=== PATIENT | male | born 1945 | race Caucasian/White ===

== ENCOUNTER → 2017-12-20 | Outpatient (CLI) | payer MEDICARE, BC | END | disposition home or self-care (01) | LOC: LABWHC1 11:17 | PROVIDERS: ATTEND Internal Medicine Geriatric Medicine | DX: E87.5 Hyperkalemia (principal) | CPT/HCPCS: 36415; 84132 ==

== ENCOUNTER 2018-03-31 13:34 | Emergency (ER) | payer MEDICARE, BC ==
[2018-03-31 13:49] VITALS: RESP 16
[2018-03-31] MEDS ORDERED: SODIUM CHLORIDE 0.9% 500 ML IV STA (13:51)
--- NOTE | 2018-03-31 14:01 | ED ---
General Adult HPI - General Chief complaint: Syncope Stated complaint: near syncope Time Seen by Provider: 03/31/18 13:40 Source: patient, RN notes reviewed, old records reviewed Mode of arrival: wheelchair Limitations: no limitations - History of Present Illness Initial comments: 72-year-old male presenting with an episode of near syncope and confusion. Patient is accompanied by his who contribute to history. Patient has had some left hip pain, he has been seen by his chiropractor today. His symptoms began after an adjustment. He did have fairly significant pain in the left hip after this adjustment. He came very lightheaded, pale, confused and nearly passed out. Patient and his state that the symptoms were likely related to pain. He has persistent pain at the time my evaluation although it is more improved. He is alert and oriented 3. He has no complaint of focal numbness or weakness. No chest pain or shortness of breath. No abdominal pain. No nausea vomiting or diarrhea. No fever or chills. - Related Data Home Medications Medication Instructions Recorded Confirmed Aspirin EC [Ecotrin Low Dose] 162 mg PO DAILY 03/31/18 03/31/18 Budesonide-Formot 160-4.5 Mcg 2 puff INHALATION RT-BID 03/31/18 03/31/18 [Symbicort 160-4.5 Mcg Inhaler] Doxazosin [Cardura] 4 mg PO DAILY 03/31/18 03/31/18 Lisinopril [Zestril] 10 mg PO DAILY 03/31/18 03/31/18 Omeprazole 20 mg PO BID 03/31/18 03/31/18 Pyridostigmine [Mestinon] 60 mg PO TID 03/31/18 03/31/18 Sertraline [Zoloft] 50 mg PO DAILY 03/31/18 03/31/18 Simvastatin 40 mg PO HS 03/31/18 03/31/18 Ubidecarenone [Co Q-10] 100 mg PO DAILY 03/31/18 03/31/18 Verapamil HCl [Verapamil ER] 180 mg PO DAILY 03/31/18 03/31/18 Previous Rx's Medication Instructions Recorded HYDROcodone/APAP 5-325MG [[place] 1 tab PO Q6HR PRN #12 tab 03/31/18 5-325] Allergies Allergy/AdvReac Type Severity Reaction Status Date / Time morphine Allergy Nausea & Verified 03/31/18 14:26 Vomiting Review of Systems ROS Statement: Those systems with pertinent positive or pertinent negative responses have been documented in the HPI. ROS Other: All systems not noted in ROS Statement are negative. Past Medical History Past Medical History: Asthma, COPD, GERD/Reflux, Hyperlipidemia, Hypertension, Prostate Disorder Additional Past Medical History / Comment(s): ocular myesthenia gravis History of Any Multi-Drug Resistant Organisms: None Reported Past Surgical History: Back Surgery Additional Past Surgical History / Comment(s): bilateral knee surgery, right foot surgery Past Psychological History: Anxiety Smoking Status: Never smoker Past Alcohol Use History: None Reported Past Drug Use History: None Reported General Exam Limitations: no limitations General appearance: alert, in no apparent distress Head exam: Present: atraumatic, normocephalic Eye exam: Present: normal appearance, PERRL, EOMI ENT exam: Present: normal exam Neck exam: Present: normal inspection. Absent: tenderness, meningismus Respiratory exam: Present: normal lung sounds bilaterally. Absent: respiratory distress, wheezes Cardiovascular Exam: Present: regular rate, normal rhythm GI/Abdominal exam: Present: soft. Absent: distended, tenderness, guarding Extremities exam: Present: normal inspection, normal capillary refill, other ( Distal pulses intact, bilateral quadricep fasciculation.). Absent: pedal edema Neurological exam: Present: alert. Absent: motor sensory deficit Psychiatric exam: Present: normal affect, normal mood Skin exam: Present: warm, diaphoretic. Absent: cyanosis Course Vital Signs 03/31/18 03/31/18 03/31/18 13:42 15:37 17:00 Temperature 98.7 F Pulse Rate 68 86 89 Respiratory 16 16 16 Rate Blood Pressure 125/66 138/69 152/73 O2 Sat by Pulse 98 99 Oximetry - Reevaluation(s) Reevaluation #1: 03/31/18 17:18 Reevaluation, patient is feeling much better, no lightheadedness, no dizziness, he does have persistent pain in the left hip which is tolerable. Vitals remained stable. EKG Findings - EKG Comments: EKG Findings:: EKG: Normal sinus rhythm, rate of 72, WA interval 188, QRS duration 84, QTC 418, no ST segment changes Medical Decision Making - Medical Decision Making 72-year-old male presenting with near syncopal episode and some confusion. This was after painful manipulation of the left hip and associated with fairly severe pain. Patient's symptoms likely related to vasovagal episode secondary to pain in his left hip. He did appear unwell on initial evaluation, pale and diaphoretic. After workup in the emergency department which was essentially negative. Brain CT is negative for it[place] hemorrhage or mass effect, chest x-ray negative for acute cardiopulmonary disease, CT of the abdomen and pelvis is negative for any acute findings. There is some thickness in the sigmoid colon which patient is informed of and instructed to follow up with gastroenterology for colonoscopy. Patient has a white blood cell count of 15 which is likely reactive, hemoglobin is stable, creatinine 1.3 troponin negative , urinalysis negative. Patient's is eager for discharge, will follow-up with his primary care physician. He will return with worsening or changing symptoms. He will be prescribed a short course of [place] for his hip pain and will discontinue taking naproxen as his creatinine is mildly elevated. - Lab Data Result diagrams: 03/31/18 14:20 03/31/18 14:20 Lab Results 03/31/18 03/31/18 03/31/18 Range/Units 13:42 14:12 14:20 WBC (3.8-10.6) k/uL RBC (4.30-5.90) m/uL Hgb (13.0-17.5) gm/dL Hct (39.0-53.0) % MCV (80.0-100.0) fL MCH (25.0-35.0) pg MCHC (31.0-37.0) g/dL RDW (11.5-15.5) % Plt Count (150-450) k/uL Neutrophils % % Lymphocytes % % Monocytes % % Eosinophils % % Basophils % % Neutrophils # (1.3-7.7) k/uL Lymphocytes # (1.0-4.8) k/uL Monocytes # (0-1.0) k/uL Eosinophils # (0-0.7) k/uL Basophils # (0-0.2) k/uL PT (9.0-12.0) sec INR (<1.2) APTT (22.0-30.0) sec Sodium (137-145) mmol/L Potassium (3.5-5.1) mmol/L Chloride (98-107) mmol/L Carbon Dioxide (22-30) mmol/L Anion Gap mmol/L BUN (9-20) mg/dL Creatinine (0.66-1.25) mg/dL Est GFR (CKD-EPI)AfAm (>60 ml/min/1.73 sqM) Est GFR (CKD-EPI)NonAf (>60 ml/min/1.73 sqM) Glucose (74-99) mg/dL POC Glucose (mg/dL) 110 H 103 H (75-99) mg/dL POC Glu [employer] ID Dafne Beasley Jason Plasma Lactic Acid Isaac 1.6 (0.7-2.0) mmol/L Calcium (8.4-10.2) mg/dL Magnesium (1.6-2.3) mg/dL Total Bilirubin (0.2-1.3) mg/dL AST (17-59) U/L ALT (21-72) U/L Alkaline Phosphatase (38-126) U/L Total Creatine Kinase (55-170) U/L CK-MB (CK-2) (0.0-2.4) ng/mL CK-MB (CK-2) Rel Index Troponin I (0.000-0.034) ng/mL Total Protein (6.3-8.2) g/dL Albumin (3.5-5.0) g/dL Urine Color Urine Appearance (Clear) Urine pH (5.0-8.0) Ur Specific [place] (1.001-1.035) Urine Protein (Negative) Urine Glucose (UA) (Negative) Urine Ketones (Negative) Urine Blood (Negative) Urine Nitrite (Negative) Urine Bilirubin (Negative) Urine Urobilinogen (<2.0) mg/dL Ur Leukocyte Esterase (Negative) Urine RBC (0-5) /hpf Urine WBC (0-5) /hpf Hyaline Casts (0-2) /lpf Urine Mucus (None) /hpf 03/31/18 03/31/18 03/31/18 Range/Units 14:20 14:20 14:20 WBC 15.0 H (3.8-10.6) k/uL RBC 4.70 (4.30-5.90) m/uL Hgb 13.4 (13.0-17.5) gm/dL Hct 42.2 (39.0-53.0) % MCV 89.8 (80.0-100.0) fL MCH 28.6 (25.0-35.0) pg MCHC 31.8 (31.0-37.0) g/dL RDW 14.6 (11.5-15.5) % Plt Count 254 (150-450) k/uL Neutrophils % 82 % Lymphocytes % 8 % Monocytes % 9 % Eosinophils % 0 % Basophils % 0 % Neutrophils # 12.2 H (1.3-7.7) k/uL Lymphocytes # 1.2 (1.0-4.8) k/uL Monocytes # 1.3 H (0-1.0) k/uL Eosinophils # 0.0 (0-0.7) k/uL Basophils # 0.0 (0-0.2) k/uL PT (9.0-12.0) sec INR (<1.2) APTT (22.0-30.0) sec Sodium 142 (137-145) mmol/L Potassium 4.9 (3.5-5.1) mmol/L Chloride 111 H (98-107) mmol/L Carbon Dioxide 23 (22-30) mmol/L Anion Gap 8 mmol/L BUN 25 H (9-20) mg/dL Creatinine 1.30 H (0.66-1.25) mg/dL Est GFR (CKD-EPI)AfAm 63 (>60 ml/min/1.73 sqM) Est GFR (CKD-EPI)NonAf 54 (>60 ml/min/1.73 sqM) Glucose 99 (74-99) mg/dL POC Glucose (mg/dL) (75-99) mg/dL POC Glu [employer] ID Plasma Lactic Acid Isaac (0.7-2.0) mmol/L Calcium 9.5 (8.4-10.2) mg/dL Magnesium 2.2 (1.6-2.3) mg/dL Total Bilirubin 0.8 (0.2-1.3) mg/dL AST 20 (17-59) U/L ALT 27 (21-72) U/L Alkaline Phosphatase 59 (38-126) U/L Total Creatine Kinase 56 (55-170) U/L CK-MB (CK-2) 0.9 (0.0-2.4) ng/mL CK-MB (CK-2) Rel Index 1.6 Troponin I <0.012 (0.000-0.034) ng/mL Total Protein 7.5 (6.3-8.2) g/dL Albumin 4.1 (3.5-5.0) g/dL Urine Color Urine Appearance (Clear) Urine pH (5.0-8.0) Ur Specific [place] (1.001-1.035) Urine Protein (Negative) Urine Glucose (UA) (Negative) Urine Ketones (Negative) Urine Blood (Negative) Urine Nitrite (Negative) Urine Bilirubin (Negative) Urine Urobilinogen (<2.0) mg/dL Ur Leukocyte Esterase (Negative) Urine RBC (0-5) /hpf Urine WBC (0-5) /hpf Hyaline Casts (0-2) /lpf Urine Mucus (None) /hpf 03/31/18 03/31/18 Range/Units 14:20 15:12 WBC (3.8-10.6) k/uL RBC (4.30-5.90) m/uL Hgb (13.0-17.5) gm/dL Hct (39.0-53.0) % MCV (80.0-100.0) fL MCH (25.0-35.0) pg MCHC (31.0-37.0) g/dL RDW (11.5-15.5) % Plt Count (150-450) k/uL Neutrophils % % Lymphocytes % % Monocytes % % Eosinophils % % Basophils % % Neutrophils # (1.3-7.7) k/uL Lymphocytes # (1.0-4.8) k/uL Monocytes # (0-1.0) k/uL Eosinophils # (0-0.7) k/uL Basophils # (0-0.2) k/uL PT 10.0 (9.0-12.0) sec INR 1.0 (<1.2) APTT 22.8 (22.0-30.0) sec Sodium (137-145) mmol/L Potassium (3.5-5.1) mmol/L Chloride (98-107) mmol/L Carbon Dioxide (22-30) mmol/L Anion Gap mmol/L BUN (9-20) mg/dL Creatinine (0.66-1.25) mg/dL Est GFR (CKD-EPI)AfAm (>60 ml/min/1.73 sqM) Est GFR (CKD-EPI)NonAf (>60 ml/min/1.73 sqM) Glucose (74-99) mg/dL POC Glucose (mg/dL) (75-99) mg/dL POC Glu [employer] ID Plasma Lactic Acid Isaac (0.7-2.0) mmol/L Calcium (8.4-10.2) mg/dL Magnesium (1.6-2.3) mg/dL Total Bilirubin (0.2-1.3) mg/dL AST (17-59) U/L ALT (21-72) U/L Alkaline Phosphatase (38-126) U/L Total Creatine Kinase (55-170) U/L CK-MB (CK-2) (0.0-2.4) ng/mL CK-MB (CK-2) Rel Index Troponin I (0.000-0.034) ng/mL Total Protein (6.3-8.2) g/dL Albumin (3.5-5.0) g/dL Urine Color Yellow Urine Appearance Clear (Clear) Urine pH 7.0 (5.0-8.0) Ur Specific [place] 1.024 (1.001-1.035) Urine Protein 1+ H (Negative) Urine Glucose (UA) Negative (Negative) Urine Ketones Negative (Negative) Urine Blood Negative (Negative) Urine Nitrite Negative (Negative) Urine Bilirubin Negative (Negative) Urine Urobilinogen 4.0 (<2.0) mg/dL Ur Leukocyte Esterase Negative (Negative) Urine RBC <1 (0-5) /hpf Urine WBC 1 (0-5) /hpf Hyaline Casts 3 H (0-2) /lpf Urine Mucus Occasional H (None) /hpf Disposition Clinical Impression: Vasovagal syncope Disposition: HOME SELF-CARE Condition: Fair Instructions: Near Syncope (ED) Prescriptions: HYDROcodone/APAP 5-325MG [[place] 5-325] 1 tab PO Q6HR PRN #12 tab PRN Reason: Pain Is patient prescribed a controlled substance at d/c from ED?: Yes When asked, does pt state using other controlled substances?: No If prescribed controlled substance>3 days was MAPS reviewed?: Prescribed <3 Days If opioid is for acute pain is fill amount 7 days or less?: Yes If Rx opioid, was Start Talking consent form obtained?: Yes Referrals: Torrey Garcia MD [Primary Care Provider] - 1-2 days Time of Disposition: 17:20
[2018-03-31 14:02] LABS: Glucose,Whole Blood 110 mg/dL (75-99)
[2018-03-31 14:17] LABS: Glucose,Whole Blood 103 mg/dL (75-99)
[2018-03-31 14:38] LABS: Basophils % (A) 0 %; Eosinophils % (A) 0 %; HCT 42.2 % (39.0-53.0); HGB 13.4 gm/dL (13.0-17.5); Lymphocytes # (A) 1.2 k/uL (1.0-4.8); Lymphocytes % (A) 8 %; MCH 28.6 pg (25.0-35.0); MCHC 31.8 g/dL (31.0-37.0); MCV 89.8 fL (80.0-100.0); Monocytes # (A) 1.3 k/uL (0-1.0); Monocytes % (A) 9 %; Neutrophils # (A) 12.2 k/uL (1.3-7.7); Neutrophils % (A) 82 %; Platelet Count 254 k/uL (150-450); RDW 14.6 % (11.5-15.5)
[2018-03-31 14:41] LABS: Partial Thromboplastin Time 22.8 sec (22.0-30.0)
[2018-03-31 14:47] LABS: Albumin 4.1 g/dL (3.5-5.0); Calcium 9.5 mg/dL (8.4-10.2); Magnesium 2.2 mg/dL (1.6-2.3); Potassium 4.9 mmol/L (3.5-5.1); Total Bilirubin 0.8 mg/dL (0.2-1.3); Total Protein 7.5 g/dL (6.3-8.2)
[2018-03-31 14:53] LABS: Creatine Kinase 56 U/L (55-170)
--- NOTE | 2018-03-31 14:55 | XR ---
EXAMINATION TYPE: XR chest 2V DATE OF EXAM: 03/31/2018 COMPARISON: 08/30/2017 HISTORY: 72-year-old male syncope TECHNIQUE: AP and lateral views FINDINGS: Heart upper limits of normal in size. Aorta and pulmonary vasculature within normal limits. No consol idation or pleural effusion. IMPRESSION: No acute cardiopulmonary process.
[2018-03-31 15:06] LABS: Creatine Kinase MB 0.9 ng/mL (0.0-2.4); Troponin I <0.012 ng/mL (0.000-0.034)
[2018-03-31 15:44] LABS: Appearance,Urine Clear (Clear); Bilirubin,Urine Negative (Negative); Blood,Urine Negative (Negative); Color,Urine Yellow; Glucose,Urine (UA) Negative (Negative); Hyaline Casts,Urine 3 /lpf (0-2); Ketones,Urine Negative (Negative); Leukocyte Esterase,Urine Negative (Negative); Mucus,Urine Occasional /hpf; Nitrite,Urine Negative (Negative); Protein,Urine 1+ (Negative); RBC,Urine <1 /hpf (0-5); Specific Gravity,Urine 1.024 (1.001-1.035); WBC,Urine 1 /hpf (0-5)
--- NOTE | 2018-03-31 16:09 | CT ---
EXAMINATION TYPE: CT brain wo con DATE OF EXAM: 03/31/2018 COMPARISON: MR brain 01/04/2015 HISTORY: Syncopal episode today. CT DLP: 1076.1 mGycm Automated exposure control for dose reduction was used. Helical acquisition through the brain. 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 Calvarium is intact. Auditory change present in the bilateral maxillary sinuses. Asymmetry in the frontal horns of the lateral ventricles is a stable fin ding. No hemorrhage or hydrocephalus. IMPRESSION: NO ACUTE ABNORMALITY. ADDITIONAL FINDINGS ABOVE.
--- NOTE | 2018-03-31 17:08 | CT ---
EXAMINATION TYPE: CT abdomen pelvis w con DATE OF EXAM: 03/31/2018 COMPARISON: None HISTORY: c/o dizziness, weakness CT DLP: 1211 mGycm Automated exposure control for dose reduction was used. TECHNIQUE: Helical acquisition of images was performed from the lung bases through the pelvis. CONTRAST: Performed without Oral Contrast and with IV Contrast, patient injected with 80 mL of Isovue 300. FINDINGS: LUNG BASES: No significant abnormality is appreciated. LIVER/GB: No significant abnormality is appreciated. PANCREAS: No significant abnormality is seen. SPLEEN: No significant abnormality is seen. ADRENALS: No significant abnormality is seen. KIDNEYS: No significant abnormality is seen. FREE AIR: No free air is visualized. RETROPERITONEAL ADENOPATHY: None visualized REPRODUCTIVE ORGANS: No significant abnormality is seen URINARY BLADDER: No significant abnormality is seen. PELVIC ADENOPATHY: None visualized. OSSEOUS STRUCTURES: No significant abnormality is seen. BOWEL: There is no bowel obstruction. There is prominent sigmoid diverticulosis, without tai CT ev idence of diverticulitis. There is prominence to the wall of the sigmoid colon. If colonoscopy not r ecently obtained, which suggest characterization. OTHER: The vasculature is unremarkable for acute findings. IMPRESSION: 1. NO ACUTE PROCESS. 2. Nonurgent/nonspecific sigmoid colon findings; please refer to discussion above.
[2018-03-31 17:48] VITALS: BP 151/117; PULSE 78; TEMP 97.8
== END 2018-03-31 18:15 | disposition home or self-care (01) ==
LOC: EC 13:34
DX: R55 Syncope and collapse (principal); R41.0 Disorientation, unspecified; M25.552 Pain in left hip; R42 Dizziness and giddiness; J44.9 Chronic obstructive pulmonary disease, unspecified; E78.5 Hyperlipidemia, unspecified; I10 Essential (primary) hypertension; N42.9 Disorder of prostate, unspecified; F41.9 Anxiety disorder, unspecified; Z79.82 Long term (current) use of aspirin; Z79.51 Long term (current) use of inhaled steroids; Z79.899 Other long term (current) drug therapy; Z88.5 Allergy status to narcotic agent
CPT/HCPCS: 36415; 93005; 80053; 82550; 82553; 83605; 83735; 84484; 85025; 85610; 85730; 81001; 87040; 87077; 87186; 71046; 70450; 74177; 99285; 96360; Q9967

== ENCOUNTER 2018-04-01 15:06 | Inpatient (IN) | payer MEDICARE, BC ==
[2018-04-01] MEDS ORDERED: SODIUM CHLORIDE 0.9% 1,000 ML IV STA ×2 (15:27)
[2018-04-01] MEDS ORDERED: cefTRIAXone IN SWFI 1,000 MG/10 ML SYRINGE IVP STA (15:27)
[2018-04-01] MEDS ORDERED: cefTRIAXone IN SWFI 2,000 MG/20 ML SYRINGE IVP STA (15:33)
[2018-04-01] MEDS ORDERED: PIPERACILLIN-TAZOBACTAM 3.375 GM in DEXTROSE/WATER 1 50ML.BAG IVPB STA (15:44)
[2018-04-01] MEDS ORDERED: LEVOFLOXACIN 500MG-D5W PMX 500 MG in DEXTROSE/WATER 1 100ML.BAG IVPB STA (15:45)
[2018-04-01 15:54] LABS: Basophils % (A) 0 %; Eosinophils % (A) 0 %; HCT 36.3 % (39.0-53.0); HGB 11.7 gm/dL (13.0-17.5); Lymphocytes # (A) 0.7 k/uL (1.0-4.8); Lymphocytes % (A) 5 %; MCH 28.5 pg (25.0-35.0); MCHC 32.2 g/dL (31.0-37.0); MCV 88.7 fL (80.0-100.0); Monocytes # (A) 0.9 k/uL (0-1.0); Monocytes % (A) 6 %; Neutrophils % (A) 88 %; Platelet Count 228 k/uL (150-450); RBC 4.09 m/uL (4.30-5.90); RDW 14.7 % (11.5-15.5); WBC 14.8 k/uL (3.8-10.6)
[2018-04-01 16:00] LABS: INR 1.1 (<1.2); Partial Thromboplastin Time 25.2 sec (22.0-30.0); Prothrombin Time 10.6 sec (9.0-12.0)
[2018-04-01 16:03] LABS: Albumin 3.6 g/dL (3.5-5.0); Calcium 9.2 mg/dL (8.4-10.2); Potassium 4.8 mmol/L (3.5-5.1); Total Bilirubin 0.8 mg/dL (0.2-1.3); Total Protein 6.6 g/dL (6.3-8.2)
[2018-04-01 16:28] LABS: Troponin I 0.013 ng/mL (0.000-0.034)
[2018-04-01 17:05] LABS: Appearance,Urine Clear (Clear); Bilirubin,Urine Negative (Negative); Blood,Urine Negative (Negative); Color,Urine Yellow; Glucose,Urine (UA) Negative (Negative); Ketones,Urine Negative (Negative); Leukocyte Esterase,Urine Negative (Negative); Mucus,Urine Rare /hpf; Nitrite,Urine Negative (Negative); Protein,Urine 1+ (Negative); RBC,Urine <1 /hpf (0-5); Specific Gravity,Urine 1.014 (1.001-1.035); Squamous Epithelial Cell,Urine <1 /hpf (0-4); Urobilinogen,Urine <2.0 mg/dL (<2.0); WBC,Urine <1 /hpf (0-5)
[2018-04-01] MEDS ORDERED: ACETAMINOPHEN TAB 500 MG TAB PO STA ×2 (17:29→17:30)
[2018-04-01] MEDS ORDERED: HYDROmorphone 0.5 MG/0.5 ML SYRINGE IVP STA (17:30)
--- NOTE | 2018-04-01 17:38 | ED ---
General Adult HPI - General Chief complaint: Shortness of Breath Stated complaint: SOB Time Seen by Provider: 04/01/18 15:21 Source: patient, EMS Mode of arrival: EMS Limitations: no limitations - History of Present Illness Initial comments: 72 years old male comes in with shortness of breath shakes or chills he was seen in the ER yesterday. According bit of extensive workup done he went home and that today he had a high fever shakes and chills. Very nervous here hard time breathing he feels very weak. No headaches no chest pain no shortness of breath now no abdominal pain no frequency urgency dysuria. He was giving him given his initial blood cultures report on him from yesterday initial blood culture report shows gram-positive cocci seen in clusters which explains his symptoms and fever and generalized weakness - Related Data Home Medications Medication Instructions Recorded Confirmed Aspirin EC [Ecotrin Low Dose] 162 mg PO DAILY 03/31/18 04/01/18 Budesonide-Formot 160-4.5 Mcg 2 puff INHALATION RT-BID 03/31/18 04/01/18 [Symbicort 160-4.5 Mcg Inhaler] Doxazosin [Cardura] 4 mg PO DAILY 03/31/18 04/01/18 Lisinopril [Zestril] 10 mg PO DAILY 03/31/18 04/01/18 Omeprazole 20 mg PO BID 03/31/18 04/01/18 Pyridostigmine [Mestinon] 60 mg PO TID 03/31/18 04/01/18 Sertraline [Zoloft] 50 mg PO DAILY 03/31/18 04/01/18 Simvastatin 40 mg PO HS 03/31/18 04/01/18 Ubidecarenone [Co Q-10] 100 mg PO DAILY 03/31/18 04/01/18 Verapamil HCl [Verapamil ER] 180 mg PO DAILY 03/31/18 04/01/18 Previous Rx's Medication Instructions Recorded HYDROcodone/APAP 5-325MG [[place] 1 tab PO Q6HR PRN #12 tab 03/31/18 5-325] Allergies Allergy/AdvReac Type Severity Reaction Status Date / Time morphine Allergy Nausea & Verified 04/01/18 16:24 Vomiting Review of Systems ROS Statement: Those systems with pertinent positive or pertinent negative responses have been documented in the HPI. ROS Other: All systems not noted in ROS Statement are negative. Past Medical History Past Medical History: Asthma, COPD, GERD/Reflux, Hyperlipidemia, Hypertension, Prostate Disorder Additional Past Medical History / Comment(s): ocular myesthenia gravis History of Any Multi-Drug Resistant Organisms: None Reported Past Surgical History: Back Surgery Additional Past Surgical History / Comment(s): bilateral knee surgery, right foot surgery Past Psychological History: Anxiety Smoking Status: Never smoker Past Alcohol Use History: None Reported Past Drug Use History: None Reported General Exam - General Exam Comments Initial Comments: General: The patient is awake and alert, in no distress, and does not appear acutely ill. GCS is 15 Skin: Skin is warm and dry and no rashes or lesions are noted. Eye: Pupils are equal, round and reactive to light, extra-ocular movements are intact; there is normal conjunctiva bilaterally. Ears, nose, mouth and throat: There are moist mucous membranes and no oral lesions. Neck: The neck is supple, there is no tenderness him a no signs of meningitis. Cardiovascular: There is a regular rate and rhythm. No murmur, rub or gallop is appreciated. Respiratory: To auscultation bilateral, no wheezing no rhonchi no distress respiratory arora noticed Gastrointestinal: Soft, non-distended, non-tender abdomen without masses or organomegaly noted. There is no rebound or guarding present. Bowel sounds are unremarkable. Back: There is no tenderness to palpation in the midline. There is no obvious deformity. Musculoskeletal: Normal ROM, no tenderness, There is no pedal edema. There is no calf tenderness or swelling. No cords were appreciated. Neurological: CN II-XII intact, Cranial nerves III through XII are intact. There are no obvious motor or sensory deficits. Coordination appears grossly intact. Speech is normal. Psychiatric: Cooperative, appropriate mood & affect, normal judgment. Limitations: no limitations Course Vital Signs 04/01/18 04/01/18 04/01/18 15:06 15:25 16:11 Temperature 102.9 F H Pulse Rate 106 H 105 H 95 Respiratory 28 H 18 18 Rate Blood Pressure 139/63 139/63 137/65 O2 Sat by Pulse 95 97 97 Oximetry 04/01/18 16:37 Temperature 101.5 F H Pulse Rate 88 Respiratory 18 Rate Blood Pressure 152/67 O2 Sat by Pulse 97 Oximetry Medical Decision Making - Lab Data Result diagrams: 04/01/18 15:17 04/01/18 15:17 Lab Results 04/01/18 04/01/18 04/01/18 Range/Units 15:17 15:17 15:17 WBC 14.8 H (3.8-10.6) k/uL RBC 4.09 L (4.30-5.90) m/uL Hgb 11.7 L (13.0-17.5) gm/dL Hct 36.3 L (39.0-53.0) % MCV 88.7 (80.0-100.0) fL MCH 28.5 (25.0-35.0) pg MCHC 32.2 (31.0-37.0) g/dL RDW 14.7 (11.5-15.5) % Plt Count 228 (150-450) k/uL Neutrophils % 88 % Lymphocytes % 5 % Monocytes % 6 % Eosinophils % 0 % Basophils % 0 % Neutrophils # 13.0 H (1.3-7.7) k/uL Lymphocytes # 0.7 L (1.0-4.8) k/uL Monocytes # 0.9 (0-1.0) k/uL Eosinophils # 0.0 (0-0.7) k/uL Basophils # 0.0 (0-0.2) k/uL PT (9.0-12.0) sec INR (<1.2) APTT (22.0-30.0) sec Sodium 139 (137-145) mmol/L Potassium 4.8 (3.5-5.1) mmol/L Chloride 108 H (98-107) mmol/L Carbon Dioxide 22 (22-30) mmol/L Anion Gap 9 mmol/L BUN 27 H (9-20) mg/dL Creatinine 1.10 (0.66-1.25) mg/dL Est GFR (CKD-EPI)AfAm 77 (>60 ml/min/1.73 sqM) Est GFR (CKD-EPI)NonAf 66 (>60 ml/min/1.73 sqM) Glucose 102 H (74-99) mg/dL Plasma Lactic Acid Isaac (0.7-2.0) mmol/L Calcium 9.2 (8.4-10.2) mg/dL Total Bilirubin 0.8 (0.2-1.3) mg/dL AST 21 (17-59) U/L ALT 29 (21-72) U/L Alkaline Phosphatase 54 (38-126) U/L Total Creatine Kinase 50 L (55-170) U/L CK-MB (CK-2) 1.0 (0.0-2.4) ng/mL CK-MB (CK-2) Rel Index 2.0 Troponin I 0.013 (0.000-0.034) ng/mL NT-Pro-B Natriuret Pep pg/mL Total Protein 6.6 (6.3-8.2) g/dL Albumin 3.6 (3.5-5.0) g/dL Urine Color Urine Appearance (Clear) Urine pH (5.0-8.0) Ur Specific [place] (1.001-1.035) Urine Protein (Negative) Urine Glucose (UA) (Negative) Urine Ketones (Negative) Urine Blood (Negative) Urine Nitrite (Negative) Urine Bilirubin (Negative) Urine Urobilinogen (<2.0) mg/dL Ur Leukocyte Esterase (Negative) Urine RBC (0-5) /hpf Urine WBC (0-5) /hpf Ur Squamous Epith Cells (0-4) /hpf Urine Mucus (None) /hpf 04/01/18 04/01/18 04/01/18 Range/Units 15:17 15:17 15:17 WBC (3.8-10.6) k/uL RBC (4.30-5.90) m/uL Hgb (13.0-17.5) gm/dL Hct (39.0-53.0) % MCV (80.0-100.0) fL MCH (25.0-35.0) pg MCHC (31.0-37.0) g/dL RDW (11.5-15.5) % Plt Count (150-450) k/uL Neutrophils % % Lymphocytes % % Monocytes % % Eosinophils % % Basophils % % Neutrophils # (1.3-7.7) k/uL Lymphocytes # (1.0-4.8) k/uL Monocytes # (0-1.0) k/uL Eosinophils # (0-0.7) k/uL Basophils # (0-0.2) k/uL PT 10.6 (9.0-12.0) sec INR 1.1 (<1.2) APTT 25.2 (22.0-30.0) sec Sodium (137-145) mmol/L Potassium (3.5-5.1) mmol/L Chloride (98-107) mmol/L Carbon Dioxide (22-30) mmol/L Anion Gap mmol/L BUN (9-20) mg/dL Creatinine (0.66-1.25) mg/dL Est GFR (CKD-EPI)AfAm (>60 ml/min/1.73 sqM) Est GFR (CKD-EPI)NonAf (>60 ml/min/1.73 sqM) Glucose (74-99) mg/dL Plasma Lactic Acid Isaac 1.6 (0.7-2.0) mmol/L Calcium (8.4-10.2) mg/dL Total Bilirubin (0.2-1.3) mg/dL AST (17-59) U/L ALT (21-72) U/L Alkaline Phosphatase (38-126) U/L Total Creatine Kinase (55-170) U/L CK-MB (CK-2) (0.0-2.4) ng/mL CK-MB (CK-2) Rel Index Troponin I (0.000-0.034) ng/mL NT-Pro-B Natriuret Pep 661 pg/mL Total Protein (6.3-8.2) g/dL Albumin (3.5-5.0) g/dL Urine Color Urine Appearance (Clear) Urine pH (5.0-8.0) Ur Specific [place] (1.001-1.035) Urine Protein (Negative) Urine Glucose (UA) (Negative) Urine Ketones (Negative) Urine Blood (Negative) Urine Nitrite (Negative) Urine Bilirubin (Negative) Urine Urobilinogen (<2.0) mg/dL Ur Leukocyte Esterase (Negative) Urine RBC (0-5) /hpf Urine WBC (0-5) /hpf Ur Squamous Epith Cells (0-4) /hpf Urine Mucus (None) /hpf 04/01/18 Range/Units 16:55 WBC (3.8-10.6) k/uL RBC (4.30-5.90) m/uL Hgb (13.0-17.5) gm/dL Hct (39.0-53.0) % MCV (80.0-100.0) fL MCH (25.0-35.0) pg MCHC (31.0-37.0) g/dL RDW (11.5-15.5) % Plt Count (150-450) k/uL Neutrophils % % Lymphocytes % % Monocytes % % Eosinophils % % Basophils % % Neutrophils # (1.3-7.7) k/uL Lymphocytes # (1.0-4.8) k/uL Monocytes # (0-1.0) k/uL Eosinophils # (0-0.7) k/uL Basophils # (0-0.2) k/uL PT (9.0-12.0) sec INR (<1.2) APTT (22.0-30.0) sec Sodium (137-145) mmol/L Potassium (3.5-5.1) mmol/L Chloride (98-107) mmol/L Carbon Dioxide (22-30) mmol/L Anion Gap mmol/L BUN (9-20) mg/dL Creatinine (0.66-1.25) mg/dL Est GFR (CKD-EPI)AfAm (>60 ml/min/1.73 sqM) Est GFR (CKD-EPI)NonAf (>60 ml/min/1.73 sqM) Glucose (74-99) mg/dL Plasma Lactic Acid Isaac (0.7-2.0) mmol/L Calcium (8.4-10.2) mg/dL Total Bilirubin (0.2-1.3) mg/dL AST (17-59) U/L ALT (21-72) U/L Alkaline Phosphatase (38-126) U/L Total Creatine Kinase (55-170) U/L CK-MB (CK-2) (0.0-2.4) ng/mL CK-MB (CK-2) Rel Index Troponin I (0.000-0.034) ng/mL NT-Pro-B Natriuret Pep pg/mL Total Protein (6.3-8.2) g/dL Albumin (3.5-5.0) g/dL Urine Color Yellow Urine Appearance Clear (Clear) Urine pH 6.0 (5.0-8.0) Ur Specific [place] 1.014 (1.001-1.035) Urine Protein 1+ H (Negative) Urine Glucose (UA) Negative (Negative) Urine Ketones Negative (Negative) Urine Blood Negative (Negative) Urine Nitrite Negative (Negative) Urine Bilirubin Negative (Negative) Urine Urobilinogen <2.0 (<2.0) mg/dL Ur Leukocyte Esterase Negative (Negative) Urine RBC <1 (0-5) /hpf Urine WBC <1 (0-5) /hpf Ur Squamous Epith Cells <1 (0-4) /hpf Urine Mucus Rare H (None) /hpf Critical Care Time Total Critical Care Time: 30 Critical Care Time: She has a quite violent shakes, is giving some Tylenol and as well as antibiotics considering he was given Zosyn and Levaquin Dr. Mosley recommended we added we add vancomycin Vanco was added, he has a fluid bolus complaining about the right hip pain though mom hip is pain is chronic with his fever I was concerned about septic joint and did the CAT scan of the urinalysis is normal white count is elevated with a left shift. Chemistries looked good lactate is normal at this point he will be admitted to Dr. Mosley Disposition Clinical Impression: Sepsis, Bacteremia, Pain in left hip Disposition: ADMITTED IP TO THIS HOSP Referrals: Torrey Garcia MD [Primary Care Provider] - 1-2 days
--- NOTE | 2018-04-01 17:40 | CT ---
EXAMINATION TYPE: CT hip LT wo con with 3-D reconstruction renderings DATE OF EXAM: 04/01/2018 COMPARISON: None HISTORY: left hip pain, no injury CT DLP: 425 mGycm Automated exposure control for dose reduction was used. 3-D reconstructions. FINDINGS: The left hip bones and joints and soft tissues are negative for acute findings. There is no joint effusion or evidence of trochanteric bursitis. Degenerative left hip joint changes are appreci ated, including a 1 cm smoothly marginated geode in the lateral superior acetabulum. In addition, the visualized extra-articular bones and joints and soft tissues are also unremarkable. Degenerative left sacroiliac joint changes are appreciated. IMPRESSION: NO ACUTE PROCESS.
[2018-04-01] MEDS ORDERED: HYDROmorphone 1 MG/ML 1 ML SYRINGE IVP STA (17:43)
[2018-04-01] MEDS ORDERED: VANCOMYCIN IV PER PHARMACY 1 EACH MISC MISCELLANE PRN (17:45)
[2018-04-01] MEDS ORDERED: NALOXONE 0.4 MG/ML 1 ML VIAL IV PRN (17:48)
[2018-04-01] MEDS ORDERED: ACETAMINOPHEN TAB 325 MG TAB PO PRN (17:48)
[2018-04-01] MEDS ORDERED: VANCOMYCIN 1,500 MG in SODIUM CHLORIDE 0.9% 250 ML IVPB STA (17:48)
[2018-04-01] MEDS ORDERED: HYDROmorphone 1 MG/ML 1 ML SYRINGE IVP PRN (17:48)
--- NOTE | 2018-04-01 17:54 | XR ---
EXAMINATION: XR chest 2V DATE AND TIME: 04/01/2018 5:20 PM ORDERING PROVIDER: Priya Llanos MD CLINICAL INDICATION: difficulty breathing TECHNIQUE: PA and lateral COMPARISON: 03/31/2018 DESCRIPTION: The lungs are clear. The pleural spaces are negative. The cardiac silhouette is not enla rged. The mediastinal and pleural silhouettes are unremarkable. The skeletal structures are intact wi thout focal findings. The soft tissues are unremarkable. IMPRESSION: NO ACUTE PROCESS.
[2018-04-01] MEDS ORDERED: IBUPROFEN 600 MG TAB PO STA (18:37)
[2018-04-01] MEDS: SODIUM CHLORIDE 0.9% 1,000 ML IV SCH (18:50)
[2018-04-01] MEDS ORDERED: SODIUM CHLORIDE 0.9% 1,000 ML IV ONE (18:54)
[2018-04-01] MEDS: PYRIDOSTIGMINE 60 MG TAB PO SCH (23:48)
[2018-04-01] MEDS: HYDROcodone/APAP 5-325MG 1 EACH TAB PO PRN (23:48)
[2018-04-01] MEDS: PIPERACILLIN-TAZOBACTAM 3.375 GM in DEXTROSE/WATER 1 50ML.BAG IVPB SCH (23:48)
[2018-04-01] MEDS: ATORVASTATIN 20 MG TAB PO SCH (23:48)
[2018-04-02] MEDS: SODIUM CHLORIDE 0.9% 1,000 ML IV SCH ×3 (02:30→17:57)
[2018-04-02] MEDS: ONDANSETRON 4 MG/2 ML VIAL IVP PRN ×2 (05:47→14:54)
[2018-04-02] MEDS: VANCOMYCIN 1,500 MG in SODIUM CHLORIDE 0.9% 250 ML IVPB SCH ×2 (05:52→23:13)
[2018-04-02 06:04] LABS: Basophils % (A) 0 %; Eosinophils % (A) 0 %; HCT 35.7 % (39.0-53.0); HGB 11.3 gm/dL (13.0-17.5); Lymphocytes # (A) 0.5 k/uL (1.0-4.8); Lymphocytes % (A) 3 %; MCH 28.8 pg (25.0-35.0); MCHC 31.8 g/dL (31.0-37.0); MCV 90.7 fL (80.0-100.0); Mean Platelet Volume 7.8; Monocytes # (A) 0.7 k/uL (0-1.0); Monocytes % (A) 5 %; Neutrophils # (A) 12.9 k/uL (1.3-7.7); Neutrophils % (A) 91 %; Platelet Count 217 k/uL (150-450); RBC 3.93 m/uL (4.30-5.90); RDW 14.6 % (11.5-15.5); WBC 14.1 k/uL (3.8-10.6)
[2018-04-02 06:51] LABS: Albumin 3.1 g/dL (3.5-5.0); Calcium 8.9 mg/dL (8.4-10.2); Potassium 4.5 mmol/L (3.5-5.1); Total Bilirubin 0.8 mg/dL (0.2-1.3); Total Protein 6.1 g/dL (6.3-8.2)
[2018-04-02] MEDS: SYMBICORT 160-4.5 MCG INHALER INHALATION SCH ×2 (07:43→21:03)
[2018-04-02] MEDS ORDERED: NON-FORMULARY DRUG (Ubidecarenone [Co Q-10] 100 MG) PO SCH (09:00)
[2018-04-02] MEDS: HYDROcodone/APAP 5-325MG 1 EACH TAB PO PRN (09:18)
[2018-04-02] MEDS: PYRIDOSTIGMINE 60 MG TAB PO SCH ×3 (09:19→23:13)
[2018-04-02] MEDS: VERAPAMIL SR 180 MG TABLET.ER PO SCH (09:19)
[2018-04-02] MEDS: PANTOPRAZOLE 40 MG TABLET PO SCH (09:19)
[2018-04-02] MEDS: LISINOPRIL 10 MG TAB PO SCH (09:19)
[2018-04-02] MEDS: SERTRALINE 50 MG TAB PO SCH (09:19)
[2018-04-02] MEDS: ASPIRIN 81 MG PO SCH (09:19)
[2018-04-02] MEDS: DOXAZOSIN 4 MG TAB PO SCH (09:19)
[2018-04-02] MEDS: PIPERACILLIN-TAZOBACTAM 3.375 GM in DEXTROSE/WATER 1 50ML.BAG IVPB SCH ×3 (09:27→23:21)
[2018-04-02] MEDS ORDERED: IOPAMIDOL-300 CONTRAST 30 ML VIAL (ORAL USE) PO PRN (14:01)
--- NOTE | 2018-04-02 15:32 | P.HPIM ---
History of Present Illness H&P Date: 04/02/18 Chief Complaint: fever 89 [address] old patient of Dr. Marie with past medical history of asthma and COPD GERD hyperlipidemia hypertension and BPH presents in with fever, chills. Patient was seen a day prior to admission with episode of near syncope and confusion after painful manipulation of his left hip. Patient appeared unwell on examination. Patient was sent home as labs were on nonsignificant. Brain CT was negative. Patient had a CT abdomen and pelvis was suggested some thickening in the colon in the sigmoid region but did not have any positive findings or symptoms concerning for infection. WBC was 14 and was considered to be reactive. Urinalysis was negative. Patient did have a creatinine of 1.3. She was discharged. Blood cultures done came to be staph aureus. Patient continues to have fever and and came in yesterday with shortness of breath and chills associated with weakness. Patient had a fever 102.9, pulse rate 106, blood pressure 139/63. WBC 14.8, hemoglobin 11.7, creatinine improved to 1.10 from 1.3 patient was admitted for bacteremia and sepsis with unknown source. Shins. Patient had a left hip pain CT of the hip was done with no acute findings suggestive of any abscess. Vancomycin and Zosyn was.initiated. Review of Systems Constitutional: Positive for chills, fever, lethargy, decreased appetite, Denies weakness, Denies weight loss Eyes: denies decreased vision, denies diplopia, denies discharge, denies pain Ears: deny: decreased hearing Ears, nose, mouth and throat: Denies dental pain, Denies headache, Denies nasal discharge, Denies nose pain Cardiovascular: Denies chest pain, Denies decreased exercise tolerance, Denies edema, Denies high blood pressure, Denies irregular heart beat, Denies palpitations, Denies paroxysmal nocturnal dyspnea, Denies rapid heart beat, Denies shortness of breath Respiratory: Denies congestion, Denies cough, Denies cough with sputum, Denies dyspnea, Denies home oxygen, Denies wheezing Gastrointestinal: Denies abdominal pain, Denies change in bowel habits, Denies coffee ground emesis, Denies early satiety, Denies excessive gas, Denies heartburn, Denies hematemesis, Denies hematochezia, Denies loss of appetite, endorses nausea, Denies vomiting Genitourinary: Denies dysuria, Denies flank pain, Denies kidney stones, Denies menorrhagia, Denies urgency, Denies urinary frequency Musculoskeletal: Denies gait dysfunction, Denies limitation of motion, Denies morning stiffness, Denies muscle cramps Integumentary: Denies rash, Denies wounds, Denies brittle nails, Denies change in hair/nails, Denies darkening of skin Neurological: Denies balance difficulties, Denies change in speech, Denies double vision, Denies gait dysfunction, Denies loss of vision, Denies motor disturbance, Denies numbness, Denies paralysis, Denies paresthesias, Denies seizures Psychiatric: Denies anxiety, Denies depression Endocrine: Denies excessive sweating, Denies excessive thirst, Denies high blood sugars, Denies palpitations Hematologic/Lymphatic: Denies easy bruising, Denies lymphadenopathy Past Medical History Past Medical History: Asthma, COPD, GERD/Reflux, Hyperlipidemia, Hypertension, Prostate Disorder Additional Past Medical History / Comment(s): ocular myesthenia gravis History of Any Multi-Drug Resistant Organisms: None Reported Past Surgical History: Back Surgery, Orthopedic Surgery Additional Past Surgical History / Comment(s): bilateral knee surgery, right foot surgery Past Anesthesia/Blood Transfusion Reactions: No Reported Reaction Past Psychological History: Anxiety, Depression Smoking Status: Former smoker Past Alcohol Use History: None Reported Past Drug Use History: None Reported - Past Family History Mother Family Medical History: Cancer Additional Family Medical History / Comment(s): mother from lung cancer with mets to the brain Father Family Medical History: Congestive Heart Failure (CHF), Coronary Artery Disease (CAD) Medications and Allergies Home Medications Medication Instructions Recorded Confirmed Type Aspirin EC [Ecotrin Low Dose] 162 mg PO DAILY 03/31/18 04/01/18 History Budesonide-Formot 160-4.5 Mcg 2 puff INHALATION RT-BID 03/31/18 04/01/18 History [Symbicort 160-4.5 Mcg Inhaler] Doxazosin [Cardura] 4 mg PO DAILY 03/31/18 04/01/18 History HYDROcodone/APAP 5-325MG [[place] 1 tab PO Q6HR PRN #12 tab 03/31/18 04/01/18 Rx 5-325] Lisinopril [Zestril] 10 mg PO DAILY 03/31/18 04/01/18 History Omeprazole 20 mg PO BID 03/31/18 04/01/18 History Pyridostigmine [Mestinon] 60 mg PO TID 03/31/18 04/01/18 History Sertraline [Zoloft] 50 mg PO DAILY 03/31/18 04/01/18 History Simvastatin 40 mg PO HS 03/31/18 04/01/18 History Ubidecarenone [Co Q-10] 100 mg PO DAILY 03/31/18 04/01/18 History Verapamil HCl [Verapamil ER] 180 mg PO DAILY 03/31/18 04/01/18 History Allergies Allergy/AdvReac Type Severity Reaction Status Date / Time morphine Allergy Nausea & Verified 04/01/18 22:44 Vomiting Physical Exam Vitals: Vital Signs Temp Pulse Pulse Resp BP BP Pulse Ox 04/02/18 12:00 94 20 04/02/18 11:57 99.1 F 94 20 177/83 94 L 04/02/18 08:00 97.1 F L 91 18 154/73 98 04/02/18 05:09 100.0 F H 120 H 22 96 04/02/18 04:05 98.0 F 79 18 146/80 99 04/02/18 00:10 98.6 F 85 18 128/71 98 04/01/18 20:10 93 18 04/01/18 19:40 99.4 F 93 18 143/71 97 04/01/18 19:00 102.3 F H 106 H 18 153/71 94 L 04/01/18 18:57 102.4 F H 106 H 18 151/65 95 04/01/18 18:25 102.2 F H 108 H 18 205/98 98 04/01/18 18:14 111 H 22 205/98 100 04/01/18 17:57 100.9 F H 122 H 24 122/110 96 04/01/18 16:37 101.5 F H 88 18 152/67 97 04/01/18 16:11 95 18 137/65 97 04/01/18 15:25 105 H 18 139/63 97 Intake and Output 04/02/18 04/02/18 04/02/18 06:59 14:59 22:59 Intake Total 1040 120 Output Total 1000 Balance 40 120 Intake: Intake, IV Titration 800 Amount Piperacillin-Tazobactam 3 50 .375 gm In Dextrose/Water 1 50ml.bag @ 12.5 mls/hr IVPB Q8HR [facility] Rx#: [id number] Sodium Chloride 0.9% 1, 750 000 ml @ 100 mls/hr IV . Q10H [facility] Rx#:[id number] Oral 240 120 Output: Urine 1000 Other: Voiding Method Toilet Toilet Urinal Urinal # Voids 3 0 # Bowel Movements 0 Weight 91.1 kg - Constitutional General appearance: cooperative, no acute distress, obese - EENT Eyes: anicteric sclerae, PERRLA, normal appearance ENT: hearing grossly normal - Neck Neck: no lymphadenopathy, normal ROM, no other, no rigidity, no stridor, no thyromegaly - Respiratory Respiratory: bilateral: CTA, negative: diminished, dullness, rales, rhonchi - Cardiovascular Rhythm: regular Heart sounds: normal: S1, S2 Abnormal Heart Sounds: no systolic murmur, no diastolic murmur, no rub, no S3 Gallop, no S4 Gallop, no click, no other - Gastrointestinal General gastrointestinal: normal bowel sounds, soft - Integumentary Integumentary: no rash - Neurologic Neurologic: CNII-XII intact, mild tenderness in the lumbar region, reflexes are normal no motor or sensory deficit - Musculoskeletal Musculoskeletal: gait normal, strength equal bilaterally - Psychiatric Psychiatric: A&O x's 3, appropriate affect Results CBC & Chem 7: 04/02/18 05:52 04/02/18 05:52 Labs: Abnormal Lab Results - Last 24 Hours (Table) 04/01/18 04/01/18 04/01/18 Range/Units 15:17 15:17 15:17 WBC 14.8 H (3.8-10.6) k/uL RBC 4.09 L (4.30-5.90) m/uL Hgb 11.7 L (13.0-17.5) gm/dL Hct 36.3 L (39.0-53.0) % Neutrophils # 13.0 H (1.3-7.7) k/uL Lymphocytes # 0.7 L (1.0-4.8) k/uL Chloride 108 H (98-107) mmol/L BUN 27 H (9-20) mg/dL Glucose 102 H (74-99) mg/dL Total Creatine Kinase 50 L (55-170) U/L Total Protein (6.3-8.2) g/dL Albumin (3.5-5.0) g/dL Urine Protein (Negative) Urine Mucus (None) /hpf 04/01/18 04/02/18 04/02/18 Range/Units 16:55 05:52 05:52 WBC 14.1 H (3.8-10.6) k/uL RBC 3.93 L (4.30-5.90) m/uL Hgb 11.3 L (13.0-17.5) gm/dL Hct 35.7 L (39.0-53.0) % Neutrophils # 12.9 H (1.3-7.7) k/uL Lymphocytes # 0.5 L (1.0-4.8) k/uL Chloride 113 H (98-107) mmol/L BUN 22 H (9-20) mg/dL Glucose (74-99) mg/dL Total Creatine Kinase (55-170) U/L Total Protein 6.1 L (6.3-8.2) g/dL Albumin 3.1 L (3.5-5.0) g/dL Urine Protein 1+ H (Negative) Urine Mucus Rare H (None) /hpf Microbiology - Last 24 Hours (Table) 04/01/18 15:17 Blood Culture Gram Stain - Preliminary Blood 04/01/18 15:17 Blood Culture - Final Blood Thrombosis Risk Factor Assmnt - DVT/VTE Prophylaxis DVT/VTE Prophylaxis: Pharmacologic Prophylaxis ordered - Choose All That Apply Any of the Below Risk Factors Present?: Yes Each Factor Represents 1 point: Abnormal pulmonary function (COPD), Obesity ( BMI >25) Other Risk Factors: Yes Each Risk Factor Represents 2 Points: Age 61-74 years Other congenital or acquired thrombophilia - If yes, enter type in comment: No Thrombosis Risk Factor Assessment Total Risk Factor Score: 4 Thrombosis Risk Factor Assessment Level: Moderate Risk Assessment and Plan Plan: #1 sepsis with bacteremia. Blood culture positive for staph aureus. Repeat culture pending. Continue vancomycin and Zosyn for broad-spectrum coverage. Once those 3. Acute patient's persistent back pain which is worsened in the past week we get MRI of the lumbar spine. Patient had a steroid injection one week ago which could have contributed to an infection. Does staph aureus could be a contaminate patient does have leukocytosis and tachycardia which is concerning for sepsis. Infectious disease is consulted. Tylenol for fever. Pain control with Erie 5 #2 asthma/COPD. Continue breathing treatment as needed. Continue Symbicort 2 puffs twice a day #3 GERD. Protonix 40 mg by mouth daily #4 low back pain status full steroid injections. Pain worse than previous. MRI ordered to rule out site of infection #5 DVT prophylaxis with heparin every 12 #6 disposition patient need 1-2 inpatient nights for management of sepsis #7 hypertension continue lisinopril but pressure controlled #8 hyperlipidemia continue atorvastatin 20 mg by mouth daily #9 BPH continue 4 mg daily of Cardura #7 CODE STATUS full code Disposition likely home with self-care
[2018-04-02] MEDS ORDERED: LEVOFLOXACIN 500MG-D5W PMX 500 MG in DEXTROSE/WATER 1 100ML.BAG IVPB SCH (18:00)
[2018-04-02] MEDS ORDERED: PROMETHAZINE INJ 6.25 MG in SODIUM CHLORIDE 0.9% 50 ML IVPB PRN (20:03)
[2018-04-02] MEDS ORDERED: ACETAMINOPHEN IV (For NPO) 1,000 MG in EMPTY BAG 1 BAG IVPB PRN (20:04)
[2018-04-02] MEDS: ATORVASTATIN 20 MG TAB PO SCH (23:13)
[2018-04-03] MEDS ORDERED: MELATONIN 5 MG TABLET PO PRN (01:03)
[2018-04-03] MEDS: MELATONIN 3 MG TABLET PO PRN (01:59)
--- NOTE | 2018-04-03 05:58 | CONS ---
CONSULTATION DATE OF SERVICE: 04/02/2018 REASON FOR CONSULTATION: Bacteremia. HISTORY OF PRESENT ILLNESS: The patient is a 72-year-old male presenting to the ER initially on 03/31/2018 for a near syncopal episode and confusion. Apparently the patient started having a problem over the weekend when he started feeling very weak and tired with some chills and having pain in his left hip area. Pain described to be throbbing at times dull aching, almost 5 to 6 out of 10 when it started. Over the next 24 hours, the patient's pain became so severe that he was unable to stand or bear any weight on it. Patient denies having any radiation down to the leg of the pain and denies any bowel or bladder problem. The patient denies having any high-grade fever, rigors and chills. The patient said he came to drop off his on 03/31 and by the time he got to hospital he was feeling so weak and confused; hence, he presented to the ER where the patient has been evaluated by the ER physician. The patient did have a CT of abdominal pelvis completed. The lung bases revealed no significant abnormality and no acute process, prominent sigmoid diverticulosis but no evidence of any diverticulitis. The patient did have elevated white count. Subsequently discharged home. Now brought back in the next day as the patient blood cultures done on admission was presumptive Staph, gram- positive cocci. The patient did mention a recent history of a lumbar spine pain injection done at [facility] by his pain specialist. The patient did have some vague lower back pain, more of a dull aching for the same duration 4 to 5 out of 10, no radiation. The patient denies having any chest pain or shortness of breath or cough. No abdominal pain and no diarrhea. REVIEW OF SYSTEMS: CONSTITUTIONAL: Positive for weakness and some chills. EYES: No complaint. ENT: No complaint. RESPIRATORY: No complaint. CARDIOVASCULAR: No complaint. GENITOURINARY: No complaint. GASTROINTESTINAL: No complaint. MUSCULOSKELETAL: As per HPI. INTEGUMENTARY: As per HPI. PSYCHOLOGICAL: No complaint. NEUROLOGIC: No complaint. PAST MEDICAL HISTORY: Asthma, COPD, gastroesophageal reflux disease, hypertension, hyperlipidemia, prostate disorder, myasthenia gravis, chronic back pain. PAST SURGICAL HISTORY: Bilateral knee surgery, right foot surgery. SOCIAL HISTORY: Remote history of smoking. No drinking or drug use. FAMILY HISTORY: Mother with history of lung cancer. Father history of congestive heart failure and coronary artery disease. ALLERGIES: Allergies to MORPHINE. MEDICATIONS: Medications include the patient is currently on Tylenol, hydrocodone, aspirin, Lipitor, Symbicort, Cardura, Zestril, Narcan, Zofran, Protonix, Zosyn, Zoloft, normal saline and vancomycin 1500 mg q.16 hours. PHYSICAL EXAMINATION: On examination, blood pressure is 177/83 with a pulse of 94, temperature 99. He is 94% on 2 L nasal cannula. General description is an elderly male lying in bed in no distress. No tachypnea or accessory muscle of respiration use. HEENT examination shows slight pallor. No scleral icterus. Oral mucous membrane is dry. No pharyngeal erythema or thrush. NECK: Trachea central. No thyromegaly. LUNGS: Unlabored breathing, clear to auscultation anteriorly. No wheeze or crackle. HEART: S1, S2. Regular rate and rhythm. ABDOMEN: Soft, no tenderness. No guarding or rigidity. EXTREMITIES: No edema of feet. EXAMINATION OF THE LEFT HIP AREA: Currently with no swelling or redness. No tenderness. EXAMINATION OF THE LUMBOSACRAL SPINE: Currently with minimal point tenderness on the L2 level more laterally, but no induration was noticed. NEUROLOGICALLY: The patient is awake, alert, oriented x3. Mood and affect normal. LABS: Hemoglobin 11.3, white count 14.1. BUN of 22, creatinine 1.09. Electrolytes have been normal. UA has been negative. Blood culture done on the showing Staph aureus. DIAGNOSTIC IMPRESSION AND PLAN: Patient with sepsis in a patient admitted to the hospital with a fever 102 degrees Fahrenheit. The patient was tachycardic, [place] [address] with evidence of Gram-positive bacteremia in a patient who did have a recent lumbosacral spine pain injection and did have some vague pain there with some radiation down to the left hip pain. CT of the hip was negative for any effusion making it to be less likely the source of infection. More concern is for possibly lumbosacral spine infection with secondary bacteremia as the patient currently no other clinical focus of infection. PLAN: 1. Blood cultures repeat to document clearance of bacteremia. 2. Await MRI of the lumbosacral spine ordered for this evening. 3. We will keep the patient on vancomycin pharmacy to dose target of 15 however, discontinue Zosyn as no gram negative has been grown. 4. We will follow on his clinical condition and culture to further adjust medication if needed. Thank you for this consultation. Will follow this patient along with you. MMODL / IJN: [id number] /
[2018-04-03] MEDS: SODIUM CHLORIDE 0.9% 1,000 ML IV SCH ×2 (06:37→13:19)
[2018-04-03] MEDS: SYMBICORT 160-4.5 MCG INHALER INHALATION SCH ×2 (08:28→19:56)
[2018-04-03] MEDS: DOXAZOSIN 4 MG TAB PO SCH (09:34)
[2018-04-03] MEDS: ASPIRIN 81 MG PO SCH (09:34)
[2018-04-03] MEDS: PANTOPRAZOLE 40 MG TABLET PO SCH (09:35)
[2018-04-03] MEDS: VERAPAMIL SR 180 MG TABLET.ER PO SCH (09:35)
[2018-04-03] MEDS: SERTRALINE 50 MG TAB PO SCH (09:35)
[2018-04-03] MEDS: PYRIDOSTIGMINE 60 MG TAB PO SCH ×2 (09:35→19:42)
[2018-04-03] MEDS ORDERED: ACETAMINOPHEN TAB 500 MG TAB PO PRN (10:24)
[2018-04-03] MEDS ORDERED: BUTALB/APAP/CAFF 50-325-40MG TAB PO STA (11:24)
[2018-04-03] MEDS: LISINOPRIL 10 MG TAB PO SCH (11:46)
[2018-04-03] MEDS: NAFCILLIN 2 GM in DEXTROSE 5% IN WATER 50 ML IVPB SCH ×6 (12:01→19:48)
[2018-04-03] MEDS ORDERED: IPRATROPIUM-ALBUTEROL 3 ML NEB INHALATION PRN (14:15)
--- NOTE | 2018-04-03 14:17 | P.PN ---
Subjective Progress Note Date: 04/03/18 89 [address] old patient of Dr. Marie with past medical history of asthma and COPD GERD hyperlipidemia hypertension and BPH presents in with fever, chills. Patient was seen a day prior to admission with episode of near syncope and confusion after painful manipulation of his left hip. Patient appeared unwell on examination. Patient was sent home as labs were on nonsignificant. Brain CT was negative. Patient had a CT abdomen and pelvis was suggested some thickening in the colon in the sigmoid region but did not have any positive findings or symptoms concerning for infection. WBC was 14 and was considered to be reactive. Urinalysis was negative. Patient did have a creatinine of 1.3. She was discharged. Blood cultures done came to be staph aureus. Patient continues to have fever and and came in yesterday with shortness of breath and chills associated with weakness. Patient had a fever 102.9, pulse rate 106, blood pressure 139/63. WBC 14.8, hemoglobin 11.7, creatinine improved to 1.10 from 1.3 patient was admitted for bacteremia and sepsis with unknown source. Shins. Patient had a left hip pain CT of the hip was done with no acute findings suggestive of any abscess. Vancomycin and Zosyn was.initiated. 04/03: MRI of the lumbar spine is scheduled for this afternoon. Vomiting has improved. He was able to 8 a regular bland breakfast this morning without emesis. He has been afebrile. Blood pressure is on the higher side. IV fluids will be discontinued. Patient is complaining of a headache which he states was improved after Dilaudid yesterday and Tylenol but is coming back very strong today. Fioricet will be added. He denies any focal weaknesses. He does complain of some generalized weakness. Patient has one blood culture from April 01 that is presumptive staph aureus and a repeat on April 02 is also positive. Patient has been seen by Dr. Llanos. A repeat blood culture was obtained this morning. Patient is currently on nafcillin. Objective - Vital Signs Vital signs: Vital Signs Temp 97.3 F L 04/03/18 08:00 Pulse 82 04/03/18 08:00 Resp 20 04/03/18 08:00 BP 156/74 04/03/18 08:00 Pulse Ox 95 04/03/18 08:29 Intake & Output 04/02/18 04/03/18 04/03/18 18:59 06:59 18:59 Intake Total 317 247 8197 Output Total 800 400 Balance -680 -180 1120 Weight 94.5 kg Intake: Intake, IV Titration 100 1000 Amount Piperacillin-Tazobactam 3 50 .375 gm In Dextrose/Water 1 50ml.bag @ 12.5 mls/hr IVPB Q8HR [facility] Rx#: [id number] Promethazine Inj 6.25 mg 50 In Sodium Chloride 0.9% 50 ml @ 200 mls/hr IVPB Q6HR PRN Rx#:[id number] Sodium Chloride 0.9% 1, 1000 000 ml @ 125 mls/hr IV . Q8H [facility] Rx#:[id number] Oral 120 120 120 Output: Urine 800 400 Other: Voiding Method Toilet Toilet Toilet Urinal Urinal Urinal # Voids 1 1 # Bowel Movements 0 - Exam - Constitutional General appearance: cooperative, no acute distress, obese - EENT Eyes: anicteric sclerae, PERRLA, normal appearance ENT: hearing grossly normal - Neck Neck: no lymphadenopathy, normal ROM, no other, no rigidity, no stridor, no thyromegaly - Respiratory Respiratory: bilateral: CTA, negative: diminished, dullness, rales, rhonchi - Cardiovascular Rhythm: regular Heart sounds: normal: S1, S2 Abnormal Heart Sounds: no systolic murmur, no diastolic murmur, no rub, no S3 Gallop, no S4 Gallop, no click, no other - Gastrointestinal General gastrointestinal: normal bowel sounds, soft - Integumentary Integumentary: no rash - Neurologic Neurologic: CNII-XII intact, mild tenderness in the lumbar region, reflexes are normal no motor or sensory deficit - Musculoskeletal Musculoskeletal: gait normal, strength equal bilaterally - Psychiatric Psychiatric: A&O x's 3, appropriate affect - Labs CBC & Chem 7: 04/02/18 05:52 04/02/18 05:52 Labs: Microbiology - Last 24 Hours (Table) 04/02/18 14:42 Blood Culture - Final Blood 04/01/18 15:17 Blood Culture Gram Stain - Preliminary Blood Blood Culture - Preliminary Presumptive Staph aureus Assessment and Plan Plan: #1 sepsis with bacteremia. Blood culture positive for staph aureus. Repeat culture pending. Continue nafcillin. Consult with Dr. Llanos is appreciated. MRI of the lumbar spine scheduled for this afternoon. Tylenol for fever. Pain control with [employer] 5 #2 asthma/COPD. Continue DuoNeb as needed. Continue Symbicort 2 puffs twice a day #3 GERD. Protonix 40 mg by mouth daily #4 low back pain status full steroid injections. Pain worse than previous. MRI ordered to rule out site of infection #5 DVT prophylaxis with heparin every 12 #6 disposition patient need 1-2 inpatient nights for management of sepsis #7 hypertension continue lisinopril and verapamil #8 hyperlipidemia continue atorvastatin 20 mg by mouth daily #9 BPH continue 4 mg daily of Cardura 10. Headache. Fioricet started. CODE STATUS full code Discharge plan: Return home Impression and plan of care have been directed as dictated by the signing physician. Suzanne Ybarra nurse practitioner acting as scribe for signing physician.
--- NOTE | 2018-04-03 15:29 | PN ---
PROGRESS NOTE DATE OF SERVICE: 04/03/2018 REASON FOR FOLLOWUP: MSSA bacteremia, source is possible lumbosacral spine. INTERVAL HISTORY: The patient overall feels better and has improved. The patient denies having any rigors or chills as he still has some low back pain. He was unable to complete the MRI last night as scheduled for today. Denies having any chest pain or shortness of breath. No cough. No abdominal pain and no diarrhea. PHYSICAL EXAMINATION: Blood pressure 129/68 with a pulse of 79, temperature 98.3, he is 93% on room air. General description is an elderly male, lying in bed in no distress. RESPIRATORY SYSTEM: Unlabored breathing, clear to auscultation anteriorly. HEART: S1, S2. Regular rate and rhythm. ABDOMEN: Soft, no tenderness. LABS: No new lab has been obtained today. Blood culture that was drawn yesterday still showing positive. The cultures that were drawn on 03/31 were finalized with MSSA. DIAGNOSTIC IMPRESSION AND PLAN: Patient with methicillin-sensitive Staphylococcus aureus bacteremia, likely lumbosacral spine. The patient did have a recent injection in that area. We are waiting for the MRI to be finalized. Antibiotic has been adjusted to Nafcillin 2 g q.4 hour. Blood culture has been repeated to document clearance of bacteremia. Continue supportive care. MMODL / IJN: [id number] /
[2018-04-03] MEDS: BUTALB/APAP/CAFF 50-325-40MG TAB PO PRN ×2 (15:30→19:43)
--- NOTE | 2018-04-03 15:38 | MR ---
EXAMINATION TYPE: MR lumbar spine wo/w con DATE OF EXAM: 04/03/2018 COMPARISON: MRI lumbar spine January 31, 2013. CT abdomen and pelvis March 31, 2018. HISTORY: Back pain, fever, sepsis, recent injection TECHNIQUE: Multiplanar, multisequence images of the lumbar spine is performed without and with IV contrast, util izing 9.5 mL intravenous Gadavist FINDINGS: Sagittal images of the lumbar spine show vertebral body heights and alignment to appear sta ble and satisfactory. There is redemonstration of multilevel disc desiccation and fairly advanced dis c space narrowing with multilevel vacuum disc phenomenon. Multiple small posterior disc herniations a re redemonstrated on sagittal images The conus medullaris is stable in position ending inferior L1 l evel without abnormal signal. The bone marrow signal intensity remains within normal limits. There i s persistent but stable round enhancing extra medullary intradural 8mm lesion left L1 vertebra sagitt al image 7. No suspicious postcontrast enhancement is otherwise seen. Postsurgical change posteriorly L3-L5 level with spinous process resection is redemonstrated. Axial images at T12-L1 level remain within normal limits. Axial images at L1-L2 level redemonstrate moderate broad disc bulge effacing anterior thecal sac with left paracentral disc protrusion component. There is mild facet degenerative changes seen bilaterall y. Bilateral neural foramina are patent. Axial images at L2-L3 level show moderate to severe broad disc bulge effacing anterior thecal sac wit h mild to moderate facet degenerative changes bilaterally. There is effacement of the anterior thecal sac. There is mild bilateral anterior inferior neural foraminal narrowing. Axial images at the L3-L4 level show moderate to severe broad disc bulge effacing anterior thecal sac with moderate to severe facet degenerative changes bilaterally. Posterior spinous process resection is seen. There is moderate to severe bilateral neural foraminal narrowing noted. Axial images at L4-L5 level show bilateral laminectomy defects and spinous process resection. There i s mild to moderate facet arthropathy bilaterally. There is moderate to severe broad disc bulge. There is effacement of the anterior thecal sac. There is moderate bilateral neural foraminal narrowing red emonstrated. Axial images at L5-S1 level show bilateral laminectomy defects and spinous process resection. There i s broad disc bulge but spinal canal is preserved. There is moderate to severe bilateral neural forami nal narrowing seen. There is new more prominent increased T1 and T2 signal anterior to spinal canal f rom prior MRI without definitive adjacent edema. Postcontrast images show few enhancing left-sided lumbar nerves. There is enhancement of the anterior epidural tissue L5 level sparing the spinal canal. Inferior disc extrusion component L4-L5 level is redemonstrated axial image 6. IMPRESSION: Nonspecific enhancing tissue anterior to spinal canal L5 level could reflect scar tissue or active soft tissue infection. No well-formed fluid collection or abscess identified. No adjacent d iscitis or acute osteomyelitis. Stable intradural extra medullary round enhancing lesion with local m ass effect could reflect meningioma. Other etiologies not excluded. Extensive postsurgical changes re demonstrated.
[2018-04-03] MEDS: ATORVASTATIN 20 MG TAB PO SCH (19:42)
[2018-04-03] MEDS: ONDANSETRON 4 MG/2 ML VIAL IVP PRN (19:48)
[2018-04-03] MEDS: ACETAMINOPHEN TAB 325 MG TAB PO PRN (20:03)
[2018-04-04] MEDS: NAFCILLIN 2 GM in DEXTROSE 5% IN WATER 50 ML IVPB SCH ×14 (00:36→23:19)
[2018-04-04] MEDS: BUTALB/APAP/CAFF 50-325-40MG TAB PO PRN ×4 (01:45→19:59)
[2018-04-04 06:45] LABS: HCT 32.6 % (39.0-53.0); HGB 10.3 gm/dL (13.0-17.5); Hypochromasia Slight; MCH 28.5 pg (25.0-35.0); MCHC 31.6 g/dL (31.0-37.0); MCV 90.1 fL (80.0-100.0); Mean Platelet Volume 7.7; Platelet Count 206 k/uL (150-450); RBC 3.62 m/uL (4.30-5.90); RDW 14.3 % (11.5-15.5); WBC 8.3 k/uL (3.8-10.6)
[2018-04-04 06:56] LABS: Calcium 8.7 mg/dL (8.4-10.2); Potassium 4.2 mmol/L (3.5-5.1)
[2018-04-04] MEDS: ASPIRIN 81 MG PO SCH (07:55)
[2018-04-04] MEDS: VERAPAMIL SR 180 MG TABLET.ER PO SCH (07:56)
[2018-04-04] MEDS: SERTRALINE 50 MG TAB PO SCH (07:56)
[2018-04-04] MEDS: PYRIDOSTIGMINE 60 MG TAB PO SCH ×2 (07:56→19:59)
[2018-04-04] MEDS: DOXAZOSIN 4 MG TAB PO SCH (07:57)
[2018-04-04] MEDS: LISINOPRIL 10 MG TAB PO SCH (07:57)
[2018-04-04] MEDS: PANTOPRAZOLE 40 MG TABLET PO SCH (07:57)
[2018-04-04] MEDS: ACETAMINOPHEN TAB 325 MG TAB PO PRN ×2 (08:06→12:19)
[2018-04-04] MEDS: SYMBICORT 160-4.5 MCG INHALER INHALATION SCH ×2 (08:29→19:25)
--- NOTE | 2018-04-04 12:17 | ECHOF ---
Referral Reason:bacteremia MEASUREMENTS -------- HEIGHT: 180.3 cm WEIGHT: 90.3 kg BP: 184/92 RVIDd: 3.2 cm (< 3.3) IVSd: 1.4 cm (0.6 - 1.1) LVIDd: 4.3 cm (3.9 - 5.3) LVPWd: 1.3 cm (0.6 - 1.1) IVSs: 1.9 cm LVIDs: 2.6 cm LVPWs: 1.9 cm LA Diam: 3.7 cm (2.7 - 3.8) LAESV Index (A-L): 33.22 ml/m Ao Diam: 3.7 cm (2.0 - 3.7) AV Cusp: 2.0 cm (1.5 - 2.6) MV EXCURSION: 15.965 mm (> 18.000) MV EF SLOPE: 85 mm/s (70 - 150) EPSS: 0.6 cm MV E Reggie: 0.92 m/s MV DecT: 190 ms MV A Reggie: 0.97 m/s MV E/A Ratio: 0.95 RAP: 5.00 mmHg RVSP: 42.27 mmHg FINDINGS -------- Sinus rhythm. This was a technically good study. The left ventricular size is normal. There is moderate concentric left ventricular hypertrophy. O verall left ventricular systolic function is normal with, an EF between 60 - 65 %. The right ventricle is normal in size and function. LA is midly dilated 29-33ml/m2. The right atrium is normal in size. The aortic valve is trileaflet and appears structurally normal. There is trace to mild mitral regurgitation. A mobile echodensity on the LA side of the mitral leaf lets concerning for vegetation. A MICHAEL is advised for better clarification. Mild tricuspid regurgitation present. There is mild pulmonary hypertension. The right ventricular systolic pressure, as measured by Doppler, is 42.27mmHg. Trace/mild (physiologic) pulmonic regurgitation. The aortic root size is normal. Normal inferior vena cava with normal inspiratory collapse consistent with estimated right atrial pre ssure of 5 mmHg. There is no pericardial effusion. CONCLUSIONS -------- 1. Sinus rhythm. 2. This was a technically good study. 3. The left ventricular size is normal. 4. There is moderate concentric left ventricular hypertrophy. 5. Overall left ventricular systolic function is normal with, an EF between 60 - 65 %. 6. The right ventricle is normal in size and function. 7. LA is midly dilated 29-33ml/m2. 8. The right atrium is normal in size. 9. The aortic valve is trileaflet and appears structurally normal. 10. There is trace to mild mitral regurgitation. 11. A mobile echodensity on the LA side of the mitral leaflets concerning for vegetation. A MICHAEL is ad vised for better clarification. 12. Mild tricuspid regurgitation present. 13. There is mild pulmonary hypertension. 14. The right ventricular systolic pressure, as measured by Doppler, is 42.27mmHg. 15. Trace/mild (physiologic) pulmonic regurgitation. 16. The aortic root size is normal. 17. Normal inferior vena cava with normal inspiratory collapse consistent with estimated right atrial pressure of 5 mmHg. 18. There is no pericardial effusion. JOURNAL ENTRY AUDIT CLERK: Bhavna Garcia RDCS
[2018-04-04] MEDS: ONDANSETRON 4 MG/2 ML VIAL IVP PRN (12:19)
--- NOTE | 2018-04-04 14:34 | P.PN ---
Subjective Progress Note Date: 04/04/18 89 years old patient of Dr. Marie with past medical history of asthma and COPD GERD hyperlipidemia hypertension and BPH presents in with fever, chills. Patient was seen a day prior to admission with episode of near syncope and confusion after painful manipulation of his left hip. Patient appeared unwell on examination. Patient was sent home as labs were on nonsignificant. Brain CT was negative. Patient had a CT abdomen and pelvis was suggested some thickening in the colon in the sigmoid region but did not have any positive findings or symptoms concerning for infection. WBC was 14 and was considered to be reactive. Urinalysis was negative. Patient did have a creatinine of 1.3. She was discharged. Blood cultures done came to be staph aureus. Patient continues to have fever and and came in yesterday with shortness of breath and chills associated with weakness. Patient had a fever 102.9, pulse rate 106, blood pressure 139/63. WBC 14.8, hemoglobin 11.7, creatinine improved to 1.10 from 1.3 patient was admitted for bacteremia and sepsis with unknown source. Shins. Patient had a left hip pain CT of the hip was done with no acute findings suggestive of any abscess. Vancomycin and Zosyn was.initiated. 04/03: MRI of the lumbar spine is scheduled for this afternoon. Vomiting has improved. He was able to 8 a regular bland breakfast this morning without emesis. He has been afebrile. Blood pressure is on the higher side. IV fluids will be discontinued. Patient is complaining of a headache which he states was improved after Dilaudid yesterday and Tylenol but is coming back very strong today. Fioricet will be added. He denies any focal weaknesses. He does complain of some generalized weakness. Patient has one blood culture from April 01 that is presumptive staph aureus and a repeat on April 02 is also positive. Patient has been seen by Dr. Llanos. A repeat blood culture was obtained this morning. Patient is currently on nafcillin. 04/04: Blood culture from April 01 is MSSA pansensitive. He remains on nafcillin. Temperature max is been 100. MRI lumbar spine shows a nonspecific enhancing tissue anterior to spinal canal L5 level could reflect scar tissue or soft tissue infection. Now well formed fluid collection or abscess identified. No adjacent discitis or acute osteomyelitis. Stable intradural extramedullary round enhancing lesion with local mass effect could reflect meningioma. Other etiologies not excluded. Extensive postsurgical changes redemonstrated. We will add in consult with Dr. Edmondson for further evaluation of the MRI. Echocardiogram has been done with no vegetation found. Patient will be transferred to the [facility] floor. Patient does state that he had onset of diarrhea last evening and stool studies will be ordered. Objective - Vital Signs Vital signs: Vital Signs Temp 100 F H 04/04/18 08:11 Pulse 86 04/04/18 08:11 Resp 18 04/04/18 08:11 BP 184/92 04/04/18 08:11 Pulse Ox 94 L 04/04/18 08:11 Intake & Output 04/03/18 04/04/18 04/04/18 18:59 06:59 18:59 Intake Total 1460 210 180 Output Total 200 500 Balance 1260 -290 180 Weight 90.7 kg Intake: IV 100 160 0.9 110 Nafcillin 2 gm In 100 50 Dextrose 5% in Water 50 ml @ 50 mls/hr IVPB Q4HR MICHELLE Rx#:[id number] Intake, IV Titration 1000 50 Amount Nafcillin 2 gm In 50 Dextrose 5% in Water 50 ml @ 50 mls/hr IVPB Q4HR MICHELLE Rx#:[id number] Sodium Chloride 0.9% 1, 1000 000 ml @ 125 mls/hr IV . Q8H MICHELLE Rx#:[id number] Oral 360 180 Output: Urine 200 500 Other: Voiding Method Toilet Toilet Urinal Urinal # Voids 2 4 # Bowel Movements 1 - Exam - Constitutional General appearance: cooperative, no acute distress, obese - EENT Eyes: anicteric sclerae, PERRLA, normal appearance ENT: hearing grossly normal - Neck Neck: no lymphadenopathy, normal ROM, no other, no rigidity, no stridor, no thyromegaly - Respiratory Respiratory: bilateral: CTA, negative: diminished, dullness, rales, rhonchi - Cardiovascular Rhythm: regular Heart sounds: normal: S1, S2 Abnormal Heart Sounds: no systolic murmur, no diastolic murmur, no rub, no S3 Gallop, no S4 Gallop, no click, no other - Gastrointestinal General gastrointestinal: normal bowel sounds, soft - Integumentary Integumentary: no rash - Neurologic Neurologic: CNII-XII intact, mild tenderness in the lumbar region, reflexes are normal no motor or sensory deficit - Musculoskeletal Musculoskeletal: gait normal, strength equal bilaterally - Psychiatric Psychiatric: A&O x's 3, appropriate affect - Labs CBC & Chem 7: 04/04/18 05:54 04/04/18 05:54 Labs: Abnormal Lab Results - Last 24 Hours (Table) 04/04/18 04/04/18 Range/Units 05:54 05:54 RBC 3.62 L (4.30-5.90) m/uL Hgb 10.3 L (13.0-17.5) gm/dL Hct 32.6 L (39.0-53.0) % Chloride 108 H (98-107) mmol/L BUN 23 H (9-20) mg/dL Microbiology - Last 24 Hours (Table) 04/01/18 15:17 Blood Culture Gram Stain - Final Blood Blood Culture - Final Staphylococcus aureus 04/03/18 09:46 Blood Culture - Final Blood 04/02/18 14:42 Blood Culture Gram Stain - Preliminary Blood Blood Culture - Preliminary Presumptive Staph aureus 04/02/18 14:42 Blood Culture - Final Blood Assessment and Plan Plan: #1 sepsis with MSSA bacteremia, unclear source. Abnormal findings on MRI to be reviewed by Dr. Edmondson. Repeat blood culture ordered today. Continue nafcillin. Consult with Dr. Llanos is appreciated. MRI of the lumbar spine as above. Tylenol for fever. Pain control with [place] 5 #2 asthma/COPD. Continue DuoNeb as needed. Continue Symbicort 2 puffs twice a day #3 GERD. Protonix 40 mg by mouth daily #4 low back pain status full steroid injections. Pain worse than previous. MRI ordered to rule out site of infection #5 DVT prophylaxis with heparin every 12 #6 disposition patient need 1-2 inpatient nights for management of sepsis #7 hypertension continue lisinopril and verapamil #8 hyperlipidemia continue atorvastatin 20 mg by mouth daily #9 BPH continue 4 mg daily of Cardura 10. Headache. Fioricet started. 11. Diarrhea. Stool studies ordered. CODE STATUS full code Discharge plan: Return home Impression and plan of care have been directed as dictated by the signing physician. Suzanne Ybarra nurse practitioner acting as scribe for signing physician.
[2018-04-04] MEDS: ATORVASTATIN 20 MG TAB PO SCH (19:59)
[2018-04-04] MEDS: HYDROcodone/APAP 5-325MG 1 EACH TAB PO PRN (20:01)
[2018-04-04] MEDS: PIPERACILLIN-TAZOBACTAM 3.375 GM in DEXTROSE/WATER 1 50ML.BAG IVPB SCH (20:52)
[2018-04-05] MEDS: BUTALB/APAP/CAFF 50-325-40MG TAB PO PRN ×4 (03:22→21:58)
[2018-04-05] MEDS: HYDROcodone/APAP 5-325MG 1 EACH TAB PO PRN ×4 (03:22→21:59)
[2018-04-05] MEDS: NAFCILLIN 2 GM in DEXTROSE 5% IN WATER 50 ML IVPB SCH ×12 (03:23→23:36)
[2018-04-05] MEDS: ONDANSETRON 4 MG/2 ML VIAL IVP PRN (03:53)
[2018-04-05] MEDS: MELATONIN 3 MG TABLET PO PRN (03:55)
[2018-04-05] MEDS: LISINOPRIL 10 MG TAB PO SCH (07:45)
[2018-04-05] MEDS: PYRIDOSTIGMINE 60 MG TAB PO SCH ×2 (07:45→20:17)
[2018-04-05] MEDS: VERAPAMIL SR 180 MG TABLET.ER PO SCH (07:45)
[2018-04-05] MEDS: SERTRALINE 50 MG TAB PO SCH (07:45)
[2018-04-05] MEDS: PANTOPRAZOLE 40 MG TABLET PO SCH (07:45)
[2018-04-05] MEDS: DOXAZOSIN 4 MG TAB PO SCH (07:46)
[2018-04-05] MEDS: ASPIRIN 81 MG PO SCH (07:46)
[2018-04-05] MEDS: SYMBICORT 160-4.5 MCG INHALER INHALATION SCH ×2 (07:51→20:32)
--- NOTE | 2018-04-05 08:22 | PN ---
PROGRESS NOTE DATE OF SERVICE: 04/04/2018. REASON FOR FOLLOWUP: MSSA bacteremia secondary to lumbosacral spinal infection. INTERVAL HISTORY: The patient did have a low-grade fever today. Patient said he is not feeling as great, though denies having any chest pain. No abdominal pain. No nausea, vomiting and no diarrhea. EXAMINATION: Blood pressure is 158/78 with a pulse of 88. Temperature of 100.3. He is 93% on room air. General description is an elderly male up in the bed in no distress. RESPIRATORY SYSTEM: Unlabored breathing. Clear to auscultation anteriorly. HEART: S1, S2. Regular rate and rhythm. ABDOMEN: Soft. No tenderness. LABS: Hemoglobin is 10 with white count 8.3, BUN of 23, creatinine is 1.10. Blood cultures /9 positive as well. DIAGNOSTIC IMPRESSION AND PLAN: Patient with MSSA bacteremia in patient who did have abnormality seen on the lumbosacral spine, but no drainable abscess. These images were reviewed with , radiologist. Patient at this time will continued on nafcillin. Blood culture will be repeated to document clearance of bacteremia. May benefit from Dr. Edmondson, spinal surgery, evaluation as well. Echocardiogram negative for any vegetation. Continue supportive care. MMODL / IJN: [id number] /
--- NOTE | 2018-04-05 10:59 | P.CNOR ---
History of Present Illness - [facility] Consult date: 04/05/18 Consult reason: low back pain History of present illness: The patient is a 72-year-old male who presented to the hospital earlier this week with rigors and not feeling well. He states that on Saturday he was leaving the hospital after a procedure with his and he felt like he was given a pass out. On Saturday he started to have chills and rigors and decided to go back to the emergency department for further evaluation. He was found to have positive blood cultures and he was admitted for IV antibiotics and evaluation by infectious disease. The patient does have a history of a laminectomy about 20 years ago from a surgeon out of town. He does currently receives epidural injections by a pain management doctor out of town also. His last injection was almost 2 weeks ago. He gets good benefit out of the injections but states that last weekend he started to have recurrent pain before the fever started. A lumbar MRI was obtained and it revealed an area of concern anterior to L5. Orthopedic spine surgery was consulted for further evaluation. The patient also underwent an echo that revealed possible vegetation on the mitral valve. Today, the patient states that he is feeling slightly better after the start of IV antibiotics. He is still having some pain to his lower back but has improved since admission. He did have some low-grade fevers yesterday but no fevers for the last 12 hours. Review of Systems Constitutional: Reports chills, Reports fatigue, Reports fever Cardiovascular: Denies chest pain, Denies shortness of breath Respiratory: Denies cough Musculoskeletal: Reports low back pain Past Medical History Past Medical History: Asthma, COPD, GERD/Reflux, Hyperlipidemia, Hypertension, Prostate Disorder Additional Past Medical History / Comment(s): ocular myesthenia gravis History of Any Multi-Drug Resistant Organisms: None Reported Past Surgical History: Back Surgery, Orthopedic Surgery Additional Past Surgical History / Comment(s): bilateral knee surgery, right foot surgery Past Anesthesia/Blood Transfusion Reactions: No Reported Reaction Past Psychological History: Anxiety, Depression Smoking Status: Former smoker Past Alcohol Use History: None Reported Past Drug Use History: None Reported - Past Family History Mother Family Medical History: Cancer Additional Family Medical History / Comment(s): mother from lung cancer with mets to the brain Father Family Medical History: Congestive Heart Failure (CHF), Coronary Artery Disease (CAD) Medications and Allergies Home Medications Medication Instructions Recorded Confirmed Type Aspirin EC [Ecotrin Low Dose] 162 mg PO DAILY 03/31/18 04/01/18 History Budesonide-Formot 160-4.5 Mcg 2 puff INHALATION RT-BID 03/31/18 04/01/18 History [Symbicort 160-4.5 Mcg Inhaler] Doxazosin [Cardura] 4 mg PO DAILY 03/31/18 04/01/18 History HYDROcodone/APAP 5-325MG [[place] 1 tab PO Q6HR PRN #12 tab 03/31/18 04/01/18 Rx 5-325] Lisinopril [Zestril] 10 mg PO DAILY 03/31/18 04/01/18 History Omeprazole 20 mg PO BID 03/31/18 04/01/18 History Pyridostigmine [Mestinon] 60 mg PO BID 03/31/18 04/03/18 History Sertraline [Zoloft] 50 mg PO DAILY 03/31/18 04/01/18 History Simvastatin 40 mg PO HS 03/31/18 04/01/18 History Ubidecarenone [Co Q-10] 100 mg PO DAILY 03/31/18 04/01/18 History Verapamil HCl [Verapamil ER] 180 mg PO DAILY 03/31/18 04/01/18 History Allergies Allergy/AdvReac Type Severity Reaction Status Date / Time morphine Allergy Nausea & Verified 04/01/18 22:44 Vomiting Physical Examination The patient is a 72-year-old male who is in no acute distress. He is alert and oriented 3. Abdomen is soft and nontender. Chest has good excursion with deep inspiration. Exam of the lower back reveals no pain upon palpation to the lumbar spine or paraspinal muscles. There is an old incision midline on the lower back that is well-healed. He has sustained dorsiflexion and plantar flexion and EHL function. He has good foot and ankle motion. Bilateral calves are soft and nontender. Neurological and circulatory status is intact. Results - Labs Labs: Microbiology - Last 24 Hours (Table) 04/04/18 12:47 Blood Culture Gram Stain - Preliminary Blood 04/04/18 12:47 Blood Culture - Final Blood 04/02/18 14:42 Blood Culture Gram Stain - Final Blood Blood Culture - Final Staphylococcus aureus 04/04/18 16:00 Stool Culture - Preliminary Stool 04/03/18 09:46 Blood Culture Gram Stain - Preliminary Blood Blood Culture - Preliminary Presumptive Staph aureus H & H 04/01/18 04/02/18 04/04/18 Range/Units 15:17 05:52 05:54 Hgb 11.7 L 11.3 L 10.3 L (13.0-17.5) gm/dL Hct 36.3 L 35.7 L 32.6 L (39.0-53.0) % Coagulation 04/01/18 Range/Units 15:17 INR 1.1 (<1.2) Result Diagrams: 04/04/18 05:54 04/04/18 05:54 - Diagnostic results Lumbar MRI with contrast: image reviewed (MRI of the lumbar spine dated 2017 reveals nonspecific enhancing tissue anterior to the spinal canal at the L5 level which could reflect scar tissue or active soft tissue tissue infection. No well-formed fluid collection or abscess identified. There is no discitis or osteomyelitis noted. Stable intradural extramedullary wound enhancing lesion with local mass effect could reflect meningioma.) Assessment and Plan (1) Low back pain Current Visit: Yes Status: Acute Code(s): M54.5 - LOW BACK PAIN SNOMED Code(s): 120589001 (2) Bacteremia Current Visit: Yes Status: Acute Code(s): R78.81 - BACTEREMIA SNOMED Code( s): 4301533 (3) Sepsis Current Visit: Yes Status: Acute Code(s): A41.9 - SEPSIS, UNSPECIFIED ORGANISM SNOMED Code(s): 54315639 Plan: The clinical and MRI findings were discussed with the patient. The case was discussed with Dr. Edmondson by Bolivar Rosales PA-C. It is unclear if his recent epidural injection is the cause for his bacteremia at this time. The patient appears to be improving on IV antibiotics in regards to his low back pain and fevers. As recommended on the echo the patient will most likely need a MICHAEL. Continue IV antibiotics. No surgical intervention is planned at this time. We will continue to follow patient closely with internal medicine and infectious disease and if he continues to improve we will see him on outpatient basis. If the patient fails to improve, we will make further recommendations at that time.
--- NOTE | 2018-04-05 12:12 | P.PN ---
Subjective Progress Note Date: 04/05/18 Principal diagnosis: MSSA bacteremia Patient continued to be lethargic and weak but still able to ambulate to the bathroom on his own tolerating diet without difficulty denying chest pain, shortness breath, nausea, vomiting, dumping, dizziness, lightheadedness or blurry vision. Patient reported regular bowel movement and regular appetite but his energy level has gone down since he was diagnosed with infection. Patient reported only 25% improvement since admission. at the bedside Objective - Vital Signs Vital signs: Vital Signs Temp 98.4 F 04/05/18 05:45 Pulse 79 04/05/18 05:45 Resp 20 04/05/18 05:45 BP 173/85 04/05/18 05:45 Pulse Ox 92 L 04/05/18 05:45 Intake & Output 04/04/18 04/05/18 04/05/18 18:59 06:59 18:59 Intake Total 640 100 Balance 640 100 Intake: IV 240 0.9 140 Nafcillin 2 gm In 100 Dextrose 5% in Water 50 ml @ 50 mls/hr IVPB Q4HR [facility] Rx#:[id number] Oral 400 100 Other: Voiding Method Toilet Toilet Urinal # Voids 92 # Bowel Movements 1 - Exam Gen.: in stated age, no acute distress Heart: Normal S1-S2 Lungs: Clear to auscultation bilaterally Abdomen: Soft, no tenderness, positive bowel sounds in all 4 quadrant no guarding or rebound Skin: No new rash Psych: Alert and oriented 3 Neuro: No focal deficit - Labs CBC & Chem 7: 04/04/18 05:54 04/04/18 05:54 Labs: Microbiology - Last 24 Hours (Table) 04/04/18 12:47 Blood Culture Gram Stain - Preliminary Blood 04/04/18 12:47 Blood Culture - Final Blood 04/02/18 14:42 Blood Culture Gram Stain - Final Blood Blood Culture - Final Staphylococcus aureus 04/04/18 16:00 Stool Culture - Preliminary Stool 04/03/18 09:46 Blood Culture Gram Stain - Preliminary Blood Blood Culture - Preliminary Presumptive Staph aureus Assessment and Plan Assessment: 1. MSSA bacteremia with unknown source. 2. Asthma. 3. GERD area 4. Chronic low back pain status post epidural injection with steroids. Next line 5. Hypertension. 6. Hyperlipidemia. 7. Benign prostatic hypertrophy. I had long discussion with patient and his at the bedside where I explained to them that patient's currently is afebrile with improvement in his parameters and second set of blood cultures are still pending negative with negative 2-D echo and MRI was interpreted by also as negative. Consideration should be paid for MICHAEL to rule out any vegetation and to be discussed with infectious disease. Would continue current antibiotics regimen monitoring vital signs closely and monitor general condition. Patient and is agreeable to the current treatment plan
[2018-04-05] MEDS: ATORVASTATIN 20 MG TAB PO SCH (20:17)
[2018-04-06] MEDS: BUTALB/APAP/CAFF 50-325-40MG TAB PO PRN ×4 (03:54→23:01)
[2018-04-06] MEDS: HYDROcodone/APAP 5-325MG 1 EACH TAB PO PRN ×4 (03:54→23:01)
[2018-04-06] MEDS: NAFCILLIN 2 GM in DEXTROSE 5% IN WATER 50 ML IVPB SCH ×10 (03:54→20:59)
[2018-04-06] MEDS: LISINOPRIL 10 MG TAB PO SCH (07:44)
[2018-04-06] MEDS: DOXAZOSIN 4 MG TAB PO SCH (07:44)
[2018-04-06] MEDS: PANTOPRAZOLE 40 MG TABLET PO SCH (07:44)
[2018-04-06] MEDS: PYRIDOSTIGMINE 60 MG TAB PO SCH ×2 (07:44→21:01)
[2018-04-06] MEDS: SERTRALINE 50 MG TAB PO SCH (07:44)
[2018-04-06] MEDS: ASPIRIN 81 MG PO SCH (07:44)
[2018-04-06] MEDS: VERAPAMIL SR 180 MG TABLET.ER PO SCH (07:44)
[2018-04-06] MEDS: SYMBICORT 160-4.5 MCG INHALER INHALATION SCH ×2 (07:53→19:43)
--- NOTE | 2018-04-06 09:50 | P.PN ---
<Salome Ellis Bran - Last Filed: 04/06/18 09:43> Subjective Progress Note Date: 04/06/18 Principal diagnosis: Bacteremia and low back pain. The patient is a 72-year-old male who we've been following for low back pain and possible infection. Lumbar MRI revealed an area of concern anterior to L5. He continues to have low-grade fevers and repeat blood cultures reveal staph aureus. Infectious disease is currently following the patient also. He is currently receiving Nafcillin. Today, the patient states that he is still feeling not well. He states that he had a fever overnight. He states that his back pain has slightly improved since admission. Objective - Vital Signs Vital signs: Vital Signs Temp 99.5 F 04/06/18 07:35 Pulse 69 04/06/18 07:35 Resp 18 04/06/18 08:00 BP 185/90 04/06/18 07:35 Pulse Ox 93 L 04/06/18 07:35 Intake & Output 04/05/18 04/06/18 04/06/18 18:59 06:59 18:59 Intake Total 500 240 Balance 500 240 Intake: Oral 500 240 Other: Voiding Method Toilet Toilet Toilet # Voids 2 2 # Bowel Movements 1 - Exam The patient is a 72-year-old male who is in no acute distress. He is alert and oriented 3. Abdomen is soft and nontender. Chest good excursion with deep inspiration. Exam of the lower back reveals no pain upon palpation to the lumbar spine or paraspinal muscles. There is an old incision to the midline of the lower back that is well-healed. He has sustained dorsiflexion and plantar flexion and EHL function. He has good foot and ankle motion. Bilateral calves are soft and nontender. Neurological and circulatory status is intact. - Labs CBC & Chem 7: 04/04/18 05:54 04/04/18 05:54 Labs: Abnormal Lab Results - Last 24 Hours (Table) 04/04/18 Range/Units 16:00 Stool Lactoferrin POSITIVE H (NEGATIVE) Microbiology - Last 24 Hours (Table) 04/03/18 09:46 Blood Culture Gram Stain - Final Blood Blood Culture - Final Staphylococcus aureus 04/04/18 12:47 Blood Culture Gram Stain - Preliminary Blood Blood Culture - Preliminary Presumptive Staph aureus Assessment and Plan (1) Low back pain Current Visit: Yes Status: Acute Code(s): M54.5 - LOW BACK PAIN SNOMED Code(s): 113623314 (2) Bacteremia Current Visit: Yes Status: Acute Code(s): R78.81 - BACTEREMIA SNOMED Code( s): 9812015 (3) Sepsis Current Visit: Yes Status: Acute Code(s): A41.9 - SEPSIS, UNSPECIFIED ORGANISM SNOMED Code(s): 24173289 Plan: The clinical and MRI findings were discussed with the patient. The case will discussed with Dr. Edmondson. It is unclear if his recent epidural injection is the cause for his bacteremia at this time. The patient appears to be improving slightly on IV antibiotics in regards to his low back pain and fevers. As recommended on the echo, the patient will most likely need a MICHAEL. Blood cultures are still positive at this time. Continue IV antibiotics. No surgical intervention is planned at this time. We will continue to follow patient closely with internal medicine and infectious disease and if he continues to improve we will see him on outpatient basis. If the patient fails to improve, we will make further recommendations at that time. <Dawna Edmondson - Last Filed: 04/06/18 12:58> Objective - Vital Signs Vital signs: Vital Signs Temp 99.5 F 04/06/18 07:35 Pulse 69 04/06/18 07:35 Resp 18 04/06/18 08:00 BP 185/90 04/06/18 07:35 Pulse Ox 93 L 04/06/18 07:35 Intake & Output 04/05/18 04/06/18 04/06/18 18:59 06:59 18:59 Intake Total 500 240 Balance 500 240 Intake: Oral 500 240 Other: Voiding Method Toilet Toilet Toilet # Voids 2 2 # Bowel Movements 1 - Labs CBC & Chem 7: 04/04/18 05:54 04/04/18 05:54 Labs: Abnormal Lab Results - Last 24 Hours (Table) 04/04/18 Range/Units 16:00 Stool Lactoferrin POSITIVE H (NEGATIVE) Microbiology - Last 24 Hours (Table) 04/03/18 09:46 Blood Culture Gram Stain - Final Blood Blood Culture - Final Staphylococcus aureus 04/04/18 12:47 Blood Culture Gram Stain - Preliminary Blood Blood Culture - Preliminary Presumptive Staph aureus Assessment and Plan Plan: Patient is seen and examined at bedside. He is a very pleasant 72-year-old gentleman. He is really good brady. He has been having pain in his back this past week as well as fevers. He has history of chronic lumbar issues. He had apparent spinal stenosis back in 2000 and underwent surgical laminectomy decompression from L3 to S1 with Dr. Shetty here at [facility]. He initially had good results but a couple years later had recurrent issues and was at that point sent for interventional pain management with Dr. Almanzar at an outside institution. Patient says that the injections did very well for him many years ago. He had a another flareup of his low back issues about 2 years ago and had chiropractic manipulation and adjustments which did very well for him. However about 3 weeks ago he started having some increasing pain and sharpness of pain at his lower back and toward his buttocks bilaterally. He went back to Dr. Almanzar on [address] for repeat evaluation and underwent an epidural steroid injection. He says that for the first few days he felt the injection did a great improvement for him he said he was feeling very well but then about 5 days later he started having some increasing pain in his low back and apparently started having fevers. He was here at Hospital doing some services for his and had a near fall if it weren't for the upscale security officer who helped him to a wheelchair. He has been admitted for evaluation and was found to have bacteremia with MSSA and recurrent fevers. Thus far he has been on IV antibiotics and has been having number of tests. His echo was negative for any vegetation but is planning to have a MICHAEL tomorrow. His lumbar MRI shows evidence of his prior laminectomy decompression from L3 to S1. He does have disc degeneration L2-3 L3 4 L4 5 and L5-S1. There is some scar tissue formation around L5 and there is some increased signal anterior to the canal at L5. It is difficult to determine if there is a specific abscess or a collection of fluid beyond the signal abnormality at that area. On exam he has full active and passive range of motion in his back and lower extremities. His patellofemoral strength in his lower extremities. He is not having any changes in bowel bladder function. He is not having any paresthesias. He did have a temperature again last night to 100. Assessment and plan Low back pain with lower extremity radiculopathy Recent history of epidural steroid injection approximately [address] Almanzar at an outside institution on [address] MSSA bacteremia with recurrent fevers The far the patient has had negative workup to find source of his bacteremia. His echo was negative and he is planning have a MICHAEL tomorrow. The MRI versus lumbar spine shows some abnormal signal which may be related to the fluid from his epidural steroid injection. His difficult to discern if this is a specific fluid collection or abscess. He has had prior surgery at that area and there is scar tissue around the area as well. It could be that the source of his bacteremia is the epidural steroid injection causing an infectious process around his lumbar spine. If the MICHAEL is negative we will need to consider the possibility of revision laminectomy and irrigation and debridement of the area around L5. I discussed this with patient at length today. I answered his questions best ability in a language that he understand. He understands. We'll continue to follow him closely. Time with Patient: Greater than 30
--- NOTE | 2018-04-06 18:58 | CONS ---
CONSULTATION Mr. Holland is a 72-year-old gentleman who is seen for cardiac evaluation and possible TIA. The patient's medical records reviewed. This patient had an epidural injection about 2 weeks ago and he has been admitted about 4 days ago with fever and chills. The patient's blood cultures are positive for Staph aureus sensitive to methicillin. The patient has been treated with antibiotics. However she continues to have a fever and blood cultures remain positive. The patient denies any cardiac history. The patient has a history of hypertension, no previous history of myocardial infarction or heart murmur. She has been followed by Dr. Almanza in the office. PAST HISTORY: Bilateral knee surgery. Right foot surgery, back problem, history of hypertension, hyperlipidemia, myasthenia gravis, and chronic back pain. MEDICATIONS: The patient's home medications included Lipitor, Symbicort, Cardura, Zestril, Zofran, Protonix, Zosyn and vancomycin. PHYSICAL EXAMINATION: At present reveals a 72-year-old gentleman who does not appear to be in any acute distress. Patient's temperature is 99.5, blood pressure is 180/90 mmHg. Head and ENT examination is negative. Neck is supple. There is no increase in jugular venous pressure. Both the carotid pulses are felt. There is no bruit. Chest is symmetrical. Heart: The PMI is not felt. First and second heart sounds are normal. There is no evidence of any significant murmur. Lungs are clinically clear to auscultation and percussion. Abdomen is negative. Extremities peripheral pulses are 2+. EKG shows normal sinus rhythm without any acute ischemic changes. Patient's transthoracic echocardiogram shows some questionable calcified density on the mitral valve. FINAL IMPRESSION: This patient has a Staph aureus methicillin sensitive persistent bacteremia and septicemia. Exact etiology undetermined. No sources clear at present. In view of the persistent bacteria in spite of the medical treatment and we will recommend to do MICHAEL to rule out any vegetations. MMODL / IJN: [id number] /
--- NOTE | 2018-04-06 19:13 | P.PN ---
Subjective Progress Note Date: 04/06/18 Principal diagnosis: MSSA bacteremia Patient continued to be lethargic spiked 100.5 temperature overnight to see if Tylenol and has been afebrile since that time. Patient updated with second set of cultures being positive and patient became frustrated. Patient is denying chest pain, shortness breath, nausea, vomiting, abdominal pain, dizziness, lightheadedness or blurry vision Objective - Vital Signs Vital signs: Vital Signs Temp 99.9 F H 04/06/18 14:59 Pulse 83 04/06/18 14:59 Resp 18 04/06/18 14:59 BP 168/82 04/06/18 14:59 Pulse Ox 95 04/06/18 14:59 Intake & Output 04/06/18 04/06/18 04/07/18 06:59 18:59 06:59 Intake Total 500 440 Balance 500 440 Intake: Oral 500 440 Other: Voiding Method Toilet Toilet # Voids 2 3 - Exam Gen.: in stated age, no acute distress Heart: Normal S1-S2 Lungs: Clear to auscultation bilaterally Abdomen: Soft, no tenderness, positive bowel sounds in all 4 quadrant no guarding or rebound Skin: No new rash Psych: Alert and oriented 3 Neuro: No focal deficit - Labs CBC & Chem 7: 04/04/18 05:54 04/04/18 05:54 Labs: Abnormal Lab Results - Last 24 Hours (Table) 04/04/18 Range/Units 16:00 Stool Lactoferrin POSITIVE H (NEGATIVE) Microbiology - Last 24 Hours (Table) 04/03/18 09:46 Blood Culture Gram Stain - Final Blood Blood Culture - Final Staphylococcus aureus 04/04/18 12:47 Blood Culture Gram Stain - Preliminary Blood Blood Culture - Preliminary Presumptive Staph aureus Assessment and Plan Assessment: 1. MSSA bacteremia with unknown source. Possible secondary to epidural injection. With second set of cultures positive for same bacteria 2. Asthma. 3. GERD area 4. Chronic low back pain status post epidural injection with steroids. Next line 5. Hypertension. 6. Hyperlipidemia. 7. Benign prostatic hypertrophy. I had long discussion with the patient and cardiology this morning regarding plan of care with her patient would benefit from MICHAEL to rule out any vegetation given the ongoing positive blood cultures and MICHAEL would be crucial in the management as if it continues to be negative patient may benefit from reevaluation by neurosurgery given the recent history of injection and possible epidural abscess. Patient is agreeable to the current treatment plan: I would like to keep patient's nothing by mouth consult cardiology and follow up on MICHAEL result continue current antibiotics repeat blood work in the morning and follow- up with infectious diseases recommendation would be back in service tomorrow
[2018-04-06] MEDS: ATORVASTATIN 20 MG TAB PO SCH (21:01)
[2018-04-07] MEDS: NAFCILLIN 2 GM in DEXTROSE 5% IN WATER 50 ML IVPB SCH ×14 (00:49→23:23)
[2018-04-07] MEDS: LISINOPRIL 10 MG TAB PO SCH (06:34)
[2018-04-07] MEDS: VERAPAMIL SR 180 MG TABLET.ER PO SCH (06:34)
[2018-04-07] MEDS: SYMBICORT 160-4.5 MCG INHALER INHALATION SCH ×2 (08:05→19:27)
[2018-04-07] MEDS: HYDROcodone/APAP 5-325MG 1 EACH TAB PO PRN ×3 (09:26→23:23)
[2018-04-07] MEDS: ASPIRIN 81 MG PO SCH (09:27)
[2018-04-07] MEDS: DOXAZOSIN 4 MG TAB PO SCH (09:27)
[2018-04-07] MEDS: PANTOPRAZOLE 40 MG TABLET PO SCH (09:27)
[2018-04-07] MEDS: SERTRALINE 50 MG TAB PO SCH (09:27)
[2018-04-07] MEDS: BUTALB/APAP/CAFF 50-325-40MG TAB PO PRN ×3 (09:27→23:23)
[2018-04-07] MEDS: PYRIDOSTIGMINE 60 MG TAB PO SCH ×2 (09:27→20:34)
[2018-04-07] MEDS ORDERED: MIDAZOLAM 2 MG/2 ML VIAL ONE (10:43)
[2018-04-07] MEDS ORDERED: fentaNYL (PF) 50 MCG/ML 2 ML AMP ONE (10:43)
[2018-04-07] MEDS ORDERED: IV FLUID CONTINUATION 950 ML IV ONE (10:55)
[2018-04-07] MEDS: BENZOCAINE SPRAY 1 CAN TOPICAL ONE ×2 (10:58→11:20)
[2018-04-07] MEDS ORDERED: MIDAZOLAM 2 MG/2 ML VIAL IVP ONE ×2 (11:20→11:27)
[2018-04-07] MEDS ORDERED: fentaNYL (PF) 50 MCG/ML 2 ML AMP IVP ONE (11:20)
--- NOTE | 2018-04-07 12:00 | PN ---
PROGRESS NOTE REASON FOR FOLLOWUP: MSSA bacteremia, source likely lumbar. INTERVAL HISTORY: The patient is afebrile. He seemed to have been breathing comfortably. Denies significant chest pain or cough. No abdominal pain or any worsening pain in the lower back area. Seems to be walking around without any problem. EXAMINATION: Blood pressure is 85/90 with a pulse of 69, temperature 97.5. General description is an elderly male lying in bed in no distress. Respiratory system: Unlabored breathing, clear to auscultation anteriorly. Heart S1, S2. Regular rate and rhythm. Abdomen soft. No tenderness. LABS: Blood cultures positive negative. DIAGNOSTIC IMPRESSION AND PLAN: Patient with MSSA bacteremia, source likely lumbar spine, but no evidence of any drainable abscess. Has been seen by Orthopedics. MICHAEL has been ordered for tomorrow. We will follow up on the results. Keep the patient if necessary and once the blood culture negative to get a PICC line for outpatient antibiotic therapy at least 6 weeks. Continue supportive care. MMODL / IJN: [id number] /
--- NOTE | 2018-04-07 12:24 | ECHOT ---
TRANSESOPHAGEAL ECHOCARDIOGRAM Mr. Holland is a 72-year-old gentleman who was seen for the cardiac evaluation. Patient has a persistent Staph bacteremia. In view of that, the patient was recommended to have a MICHAEL to rule out any evidence of vegetations. Patient was given intravenous sedation with Versed and fentanyl and transesophageal echocardiogram was performed without any complications. FINDINGS: Left ventricular chamber is normal in size with normal left ventricular systolic function. There is mild thickening of the mitral leaflet noted. There is no definite evidence of any vegetations on mitral or tricuspid valve. The aortic wall is mildly thickened. There is no evidence of any vegetations. There is a minimal mitral regurgitation noted. Interatrial septum is intact and there is no evidence of any PFO. FINAL IMPRESSION: 1. This study reveals evidence of a mild degree of mitral and aortic wall thickening. There is no definite evidence of any vegetations. 2. There is a minimal mitral regurgitation noted. 3. Tricuspid valve morphology is normal. 4. Left ventricular systolic function is normal. There is no evidence of thrombus in left atrial appendage. 5. Interatrial septum is intact. There is no evidence of any patent foramen ovale by saline contrast study. MMODL / IJN: [id number] /
[2018-04-07 14:31] VITALS: BMI 27.8
--- NOTE | 2018-04-07 17:27 | P.PN ---
Progress Note - Text Progress Note Date: 04/07/18 I reviewed the results of the MICHAEL today. There are no apparent vegetations. I discussed the case at length with primary care service with Dr. Martínez. The patient has had negative blood cultures for over 24 hours and had only very mild temperature 200. He is mobilized well and is feeling better. He is hopeful to avoid surgical intervention. The MRI does not show any drainable abscess at this point. With his improvement I think it'll be okay for him be discharged from a spine standpoint with continue antibiotics per infectious disease. Plan to follow him up in the office in approximately 2-3 weeks for recheck evaluation and plan for possible repeat imaging with MRI to evaluate the area and L5 and determine if there is a fluid collection or fluid pocket of infectious nature. He is arranging for PICC line placement and arrangement for IV antibiotics long- term which is appropriate. I'll plan to follow them up on an outpatient basis.
[2018-04-07] MEDS: ATORVASTATIN 20 MG TAB PO SCH (20:34)
[2018-04-07] MEDS: MELATONIN 3 MG TABLET PO PRN (23:37)
--- NOTE | 2018-04-08 02:36 | PN ---
PROGRESS NOTE DATE OF SERVICE: 04/07/2018. REASON FOR FOLLOWUP: MSSA bacteremia. Source is lumbosacral spine. INTERVAL HISTORY: The patient is currently afebrile. He is breathing comfortably. He is status post a MICHAEL done this morning with no evidence of any vegetation. Denies having any chest pain or shortness of breath or cough. No abdominal pain. No diarrhea. EXAMINATION: Blood pressure is 132/86 with a pulse of 85, temperature 99.6. He is 97% on room air. General description is an elderly male lying in bed in no distress. Respiratory system: Unlabored breathing. Clear to auscultation anteriorly. Heart S1, S2. Regular rate and rhythm. Abdomen soft, no tenderness. LABS: Hemoglobin is 10.1, white count of 8.3, BUN of 23, creatinine 1.10. DIAGNOSTIC IMPRESSION AND PLAN: Patient with MSSA bacteremia, source is likely lumbosacral spine infection, but no evidence of any abscess. The MICHAEL was negative for any vegetation. Patient currently on Nafcillin. He had blood cultures drawn on 04/06 remains to be negative to get a PICC line for outpatient IV antibiotic therapy. Continue supportive care. MMODL / IJN: [id number] /
[2018-04-08] MEDS: HYDROcodone/APAP 5-325MG 1 EACH TAB PO PRN ×3 (06:34→20:04)
[2018-04-08] MEDS: NAFCILLIN 2 GM in DEXTROSE 5% IN WATER 50 ML IVPB SCH ×12 (06:34→23:48)
[2018-04-08] MEDS: BUTALB/APAP/CAFF 50-325-40MG TAB PO PRN ×3 (06:34→20:04)
[2018-04-08] MEDS: LISINOPRIL 10 MG TAB PO SCH (08:00)
[2018-04-08] MEDS: DOXAZOSIN 4 MG TAB PO SCH (08:00)
[2018-04-08] MEDS: PYRIDOSTIGMINE 60 MG TAB PO SCH ×2 (08:00→20:04)
[2018-04-08] MEDS: VERAPAMIL SR 180 MG TABLET.ER PO SCH (08:00)
[2018-04-08] MEDS: ASPIRIN 81 MG PO SCH (08:00)
[2018-04-08] MEDS: PANTOPRAZOLE 40 MG TABLET PO SCH (08:00)
[2018-04-08] MEDS: SERTRALINE 50 MG TAB PO SCH (08:00)
[2018-04-08 08:09] LABS: Basophils % (A) 0 %; Eosinophils # (A) 0.1 k/uL (0-0.7); Eosinophils % (A) 2 %; HCT 34.8 % (39.0-53.0); HGB 11.1 gm/dL (13.0-17.5); Hypochromasia Slight; Lymphocytes # (A) 1.1 k/uL (1.0-4.8); Lymphocytes % (A) 15 %; MCH 28.4 pg (25.0-35.0); MCV 88.9 fL (80.0-100.0); Monocytes # (A) 0.5 k/uL (0-1.0); Monocytes % (A) 7 %; Neutrophils # (A) 5.3 k/uL (1.3-7.7); Neutrophils % (A) 74 %; Platelet Count 310 k/uL (150-450); RBC 3.92 m/uL (4.30-5.90); RDW 14.6 % (11.5-15.5); WBC 7.2 k/uL (3.8-10.6)
[2018-04-08 08:32] LABS: Albumin 3.2 g/dL (3.5-5.0); Potassium 4.2 mmol/L (3.5-5.1); Total Bilirubin 0.7 mg/dL (0.2-1.3); Total Protein 6.5 g/dL (6.3-8.2)
[2018-04-08] MEDS: SYMBICORT 160-4.5 MCG INHALER INHALATION SCH ×2 (09:22→22:05)
[2018-04-08] MEDS ORDERED: LISINOPRIL 10 MG TAB PO STA (09:27)
[2018-04-08] MEDS ORDERED: LIDOCAINE 1% INJ 10MG/ML (20 ML MDV) SQ ONE (12:04)
--- NOTE | 2018-04-08 14:51 | P.PN ---
Subjective Progress Note Date: 04/07/18 89 years old patient of Dr. Marie with past medical history of asthma and COPD GERD hyperlipidemia hypertension and BPH presents in with fever, chills. Patient was seen a day prior to admission with episode of near syncope and confusion after painful manipulation of his left hip. Patient appeared unwell on examination. Patient was sent home as labs were on nonsignificant. Brain CT was negative. Patient had a CT abdomen and pelvis was suggested some thickening in the colon in the sigmoid region but did not have any positive findings or symptoms concerning for infection. WBC was 14 and was considered to be reactive. Urinalysis was negative. Patient did have a creatinine of 1.3. She was discharged. Blood cultures done came to be staph aureus. Patient continues to have fever and and came in yesterday with shortness of breath and chills associated with weakness. Patient had a fever 102.9, pulse rate 106, blood pressure 139/63. WBC 14.8, hemoglobin 11.7, creatinine improved to 1.10 from 1.3 patient was admitted for bacteremia and sepsis with unknown source. Shins. Patient had a left hip pain CT of the hip was done with no acute findings suggestive of any abscess. Vancomycin and Zosyn was.initiated. 04/03: MRI of the lumbar spine is scheduled for this afternoon. Vomiting has improved. He was able to 8 a regular bland breakfast this morning without emesis. He has been afebrile. Blood pressure is on the higher side. IV fluids will be discontinued. Patient is complaining of a headache which he states was improved after Dilaudid yesterday and Tylenol but is coming back very strong today. Fioricet will be added. He denies any focal weaknesses. He does complain of some generalized weakness. Patient has one blood culture from April 01 that is presumptive staph aureus and a repeat on April 02 is also positive. Patient has been seen by Dr. Llanos. A repeat blood culture was obtained this morning. Patient is currently on nafcillin. 04/04: Blood culture from April 01 is MSSA pansensitive. He remains on nafcillin. Temperature max is been 100. MRI lumbar spine shows a nonspecific enhancing tissue anterior to spinal canal L5 level could reflect scar tissue or soft tissue infection. Now well formed fluid collection or abscess identified. No adjacent discitis or acute osteomyelitis. Stable intradural extramedullary round enhancing lesion with local mass effect could reflect meningioma. Other etiologies not excluded. Extensive postsurgical changes redemonstrated. We will add in consult with Dr. Edmondson for further evaluation of the MRI. Echocardiogram has been done with no vegetation found. Patient will be transferred to the [facility] floor. Patient does state that he had onset of diarrhea last evening and stool studies will be ordered. 04/05: Patient continued to be lethargic and weak but still able to ambulate to the bathroom on his own tolerating diet without difficulty denying chest pain, shortness breath, nausea, vomiting, dumping, dizziness, lightheadedness or blurry vision. Patient reported regular bowel movement and regular appetite but his energy level has gone down since he was diagnosed with infection. Patient reported only 25% improvement since admission. at the bedside 04/06: Patient continued to be lethargic spiked 100.5 temperature overnight to see if Tylenol and has been afebrile since that time. Patient updated with second set of cultures being positive and patient became frustrated. Patient is denying chest pain, shortness breath, nausea, vomiting, abdominal pain, dizziness, lightheadedness or blurry vision 8:13: Patient is scheduled for MICHAEL today. Case discussed with Dr. Fulton with plan for continued IV antibiotics and recheck MRI as an outpatient. Patient is agreeable to this. We do have repeat blood culture with no growth at 24 hours and another culture drawn today. Patient's nausea and vomiting and diarrhea have resolved. Objective - Vital Signs Vital signs: Vital Signs Temp 99.9 F H 04/06/18 14:59 Pulse 83 04/06/18 14:59 Resp 18 04/06/18 14:59 BP 168/82 04/06/18 14:59 Pulse Ox 95 04/06/18 14:59 Intake & Output 04/05/18 04/06/18 04/06/18 18:59 06:59 18:59 Intake Total 500 440 Balance 500 440 Intake: Oral 500 440 Other: Voiding Method Toilet Toilet Toilet # Voids 2 2 3 # Bowel Movements 1 - Exam - Constitutional General appearance: cooperative, no acute distress, obese - EENT Eyes: anicteric sclerae, PERRLA, normal appearance ENT: hearing grossly normal - Neck Neck: no lymphadenopathy, normal ROM, no other, no rigidity, no stridor, no thyromegaly - Respiratory Respiratory: bilateral: CTA, negative: diminished, dullness, rales, rhonchi - Cardiovascular Rhythm: regular Heart sounds: normal: S1, S2 Abnormal Heart Sounds: no systolic murmur, no diastolic murmur, no rub, no S3 Gallop, no S4 Gallop, no click, no other - Gastrointestinal General gastrointestinal: normal bowel sounds, soft - Integumentary Integumentary: no rash - Neurologic Neurologic: CNII-XII intact, mild tenderness in the lumbar region, reflexes are normal no motor or sensory deficit - Musculoskeletal Musculoskeletal: gait normal, strength equal bilaterally - Psychiatric Psychiatric: A&O x's 3, appropriate affect - Labs CBC & Chem 7: 04/08/18 07:34 04/08/18 07:34 Labs: Abnormal Lab Results - Last 24 Hours (Table) 04/04/18 Range/Units 16:00 Stool Lactoferrin POSITIVE H (NEGATIVE) Microbiology - Last 24 Hours (Table) 04/03/18 09:46 Blood Culture Gram Stain - Final Blood Blood Culture - Final Staphylococcus aureus 04/04/18 12:47 Blood Culture Gram Stain - Preliminary Blood Blood Culture - Preliminary Presumptive Staph aureus Assessment and Plan Plan: #1 sepsis with MSSA bacteremia, unclear source. Abnormal findings on MRI to be reviewed by Dr. Edmondson. Repeat blood culture ordered today. Continue nafcillin. Consult with Dr. Llanos is appreciated. MRI of the lumbar spine as above. Tylenol for fever. Pain control with [place] 5. MICHAEL today. #2 asthma/COPD. Continue DuoNeb as needed. Continue Symbicort 2 puffs twice a day #3 GERD. Protonix 40 mg by mouth daily #4 low back pain status full steroid injections. Pain worse than previous. MRI ordered to rule out site of infection #5 DVT prophylaxis with heparin every 12 #6 disposition patient need 1-2 inpatient nights for management of sepsis #7 hypertension continue lisinopril and verapamil #8 hyperlipidemia continue atorvastatin 20 mg by mouth daily #9 BPH continue 4 mg daily of Cardura 10. Headache secondary to sepsis, resolved. Fioricet started. 11. Diarrhea, resolved. Stool studies ordered. CODE STATUS full code Discharge plan: Return home with IV antibiotics. Impression and plan of care have been directed as dictated by the signing physician. Suzanne Ybarra nurse practitioner acting as scribe for signing physician.
--- NOTE | 2018-04-08 14:54 | P.PN ---
Subjective Progress Note Date: 04/08/18 89 [address] old patient of Dr. Marie with past medical history of asthma and COPD GERD hyperlipidemia hypertension and BPH presents in with fever, chills. Patient was seen a day prior to admission with episode of near syncope and confusion after painful manipulation of his left hip. Patient appeared unwell on examination. Patient was sent home as labs were on nonsignificant. Brain CT was negative. Patient had a CT abdomen and pelvis was suggested some thickening in the colon in the sigmoid region but did not have any positive findings or symptoms concerning for infection. WBC was 14 and was considered to be reactive. Urinalysis was negative. Patient did have a creatinine of 1.3. She was discharged. Blood cultures done came to be staph aureus. Patient continues to have fever and and came in yesterday with shortness of breath and chills associated with weakness. Patient had a fever 102.9, pulse rate 106, blood pressure 139/63. WBC 14.8, hemoglobin 11.7, creatinine improved to 1.10 from 1.3 patient was admitted for bacteremia and sepsis with unknown source. Shins. Patient had a left hip pain CT of the hip was done with no acute findings suggestive of any abscess. Vancomycin and Zosyn was.initiated. 04/03: MRI of the lumbar spine is scheduled for this afternoon. Vomiting has improved. He was able to 8 a regular bland breakfast this morning without emesis. He has been afebrile. Blood pressure is on the higher side. IV fluids will be discontinued. Patient is complaining of a headache which he states was improved after Dilaudid yesterday and Tylenol but is coming back very strong today. Fioricet will be added. He denies any focal weaknesses. He does complain of some generalized weakness. Patient has one blood culture from April 01 that is presumptive staph aureus and a repeat on April 02 is also positive. Patient has been seen by Dr. Llanos. A repeat blood culture was obtained this morning. Patient is currently on nafcillin. 04/04: Blood culture from April 01 is MSSA pansensitive. He remains on nafcillin. Temperature max is been 100. MRI lumbar spine shows a nonspecific enhancing tissue anterior to spinal canal L5 level could reflect scar tissue or soft tissue infection. Now well formed fluid collection or abscess identified. No adjacent discitis or acute osteomyelitis. Stable intradural extramedullary round enhancing lesion with local mass effect could reflect meningioma. Other etiologies not excluded. Extensive postsurgical changes redemonstrated. We will add in consult with Dr. Edmondson for further evaluation of the MRI. Echocardiogram has been done with no vegetation found. Patient will be transferred to the [facility] floor. Patient does state that he had onset of diarrhea last evening and stool studies will be ordered. 04/05: Patient continued to be lethargic and weak but still able to ambulate to the bathroom on his own tolerating diet without difficulty denying chest pain, shortness breath, nausea, vomiting, dumping, dizziness, lightheadedness or blurry vision. Patient reported regular bowel movement and regular appetite but his energy level has gone down since he was diagnosed with infection. Patient reported only 25% improvement since admission. at the bedside 04/06: Patient continued to be lethargic spiked 100.5 temperature overnight to see if Tylenol and has been afebrile since that time. Patient updated with second set of cultures being positive and patient became frustrated. Patient is denying chest pain, shortness breath, nausea, vomiting, abdominal pain, dizziness, lightheadedness or blurry vision 8:13: Patient is scheduled for MICHAEL today. Case discussed with Dr. Fulton with plan for continued IV antibiotics and recheck MRI as an outpatient. Patient is agreeable to this. We do have repeat blood culture with no growth at 24 hours and another culture drawn today. Patient's nausea and vomiting and diarrhea have resolved. 04/08: MICHAEL did not show any vegetation. Dr. Llanos would like to wait for 72 hours with a negative blood culture before PICC line is placed. Patient is currently at 48 hours with no gross. He denies any new complaints. He is ambulating in the hallway and doing well. Anticipate discharge tomorrow. PICC line is ordered for tomorrow. Objective - Vital Signs Vital signs: Vital Signs Temp 97.0 F L 04/08/18 06:22 Pulse 71 04/08/18 06:22 Resp 18 04/08/18 06:22 BP 198/95 04/08/18 06:22 Pulse Ox 96 04/08/18 06:22 Intake & Output 04/07/18 04/08/18 04/08/18 18:59 06:59 18:59 Intake Total 375 200 Balance 375 200 Weight 90.7 kg Intake: IV 175 Oral 200 200 Other: Voiding Method Toilet # Voids 2 1 1 # Bowel Movements 0 - Exam - Constitutional General appearance: cooperative, no acute distress, obese - EENT Eyes: anicteric sclerae, PERRLA, normal appearance ENT: hearing grossly normal - Neck Neck: no lymphadenopathy, normal ROM, no other, no rigidity, no stridor, no thyromegaly - Respiratory Respiratory: bilateral: CTA, negative: diminished, dullness, rales, rhonchi - Cardiovascular Rhythm: regular Heart sounds: normal: S1, S2 Abnormal Heart Sounds: no systolic murmur, no diastolic murmur, no rub, no S3 Gallop, no S4 Gallop, no click, no other - Gastrointestinal General gastrointestinal: normal bowel sounds, soft - Integumentary Integumentary: no rash - Neurologic Neurologic: CNII-XII intact, mild tenderness in the lumbar region, reflexes are normal no motor or sensory deficit - Musculoskeletal Musculoskeletal: gait normal, strength equal bilaterally - Psychiatric Psychiatric: A&O x's 3, appropriate affect - Labs CBC & Chem 7: 04/08/18 07:34 04/08/18 07:34 Labs: Abnormal Lab Results - Last 24 Hours (Table) 04/08/18 04/08/18 Range/Units 07:34 07:34 RBC 3.92 L (4.30-5.90) m/uL Hgb 11.1 L (13.0-17.5) gm/dL Hct 34.8 L (39.0-53.0) % Chloride 108 H (98-107) mmol/L Albumin 3.2 L (3.5-5.0) g/dL Microbiology - Last 24 Hours (Table) 04/06/18 06:58 Blood Culture - Preliminary Blood No Growth after 48 hours 04/04/18 16:00 Stool Culture - Final Stool Assessment and Plan Plan: #1 sepsis with MSSA bacteremia, unclear source. Abnormal findings on MRI to be reviewed by Dr. Edmondson. Repeat blood culture ordered today. Continue nafcillin. Consult with Dr. Llanos is appreciated. MRI of the lumbar spine as above. Tylenol for fever. Pain control with [place] 5. MICHAEL shows no vegetation. PICC line ordered for tomorrow. #2 mild intermittent asthma/COPD. Continue DuoNeb as needed. Continue Symbicort 2 puffs twice a day #3 GERD. Protonix 40 mg by mouth daily #4 low back pain status full steroid injections. Pain worse than previous. MRI ordered to rule out site of infection #5 DVT prophylaxis with heparin every 12 #6 disposition patient need 1-2 inpatient nights for management of sepsis #7 hypertension continue lisinopril and verapamil #8 hyperlipidemia continue atorvastatin 20 mg by mouth daily #9 BPH continue 4 mg daily of Cardura 10. Headache secondary to sepsis, resolved. Fioricet started. 11. Diarrhea, resolved. Stool studies ordered. CODE STATUS full code Discharge plan: Return home with IV antibiotics. Impression and plan of care have been directed as dictated by the signing physician. Suzanne Ybarra nurse practitioner acting as scribe for signing physician.
--- NOTE | 2018-04-08 18:37 | PN ---
PROGRESS NOTE DATE OF SERVICE: 04/08/2018 REASON FOR FOLLOWUP: MSSA bacteremia secondary to the lumbar spine source. INTERVAL HISTORY: The patient is currently afebrile. He is breathing comfortably. Denies having any chest pain or shortness of breath or cough. Denies any worsening back pain. No nausea, vomiting and no diarrhea. PHYSICAL EXAMINATION: Blood pressure 154/79 with a pulse of 87, temperature 98.4. He is 96% on room air. General description is an elderly male up in the chair in no distress. RESPIRATORY SYSTEM: Unlabored breathing. Clear to auscultation anteriorly. HEART: S1, S2. Regular rate and rhythm. ABDOMEN: Soft. No tenderness. LABS: Hemoglobin is 11.1, white count 7.2, BUN of 14, creatinine 1.09. Blood cultures 04/06 and 04/07 are so far negative. DIAGNOSTIC IMPRESSION AND PLAN: Patient with methicillin-susceptible Staphylococcus aeruginosa bacteremia. Source is likely lumbar spine infection, with no evidence of any drainable abscess. Will wait for the blood culture that was drawn on 04/06 to be negative. If those are negative by tomorrow, the patient will get a PICC line and the patient will be advised cefazolin 2 grams q.8 for a total of 6 weeks with weekly monitoring of CBC, BMP and sed rate. Prescriptions were written for the patient and provided to the [facility]. Continue with supportive care. MMODL / IJN: [id number] /
[2018-04-08] MEDS: ATORVASTATIN 20 MG TAB PO SCH (20:04)
[2018-04-08] MEDS: MELATONIN 3 MG TABLET PO PRN (23:48)
[2018-04-09] MEDS: NAFCILLIN 2 GM in DEXTROSE 5% IN WATER 50 ML IVPB SCH ×6 (03:59→12:37)
[2018-04-09] MEDS: SYMBICORT 160-4.5 MCG INHALER INHALATION SCH ×2 (07:42→20:36)
[2018-04-09] MEDS: PYRIDOSTIGMINE 60 MG TAB PO SCH ×2 (09:15→20:00)
[2018-04-09] MEDS: VERAPAMIL SR 180 MG TABLET.ER PO SCH (09:15)
[2018-04-09] MEDS: LISINOPRIL 20 MG TAB PO SCH (09:15)
[2018-04-09] MEDS: ASPIRIN 81 MG PO SCH (09:15)
[2018-04-09] MEDS: SERTRALINE 50 MG TAB PO SCH (09:15)
[2018-04-09] MEDS: DOXAZOSIN 4 MG TAB PO SCH (09:16)
[2018-04-09] MEDS: BUTALB/APAP/CAFF 50-325-40MG TAB PO PRN ×2 (12:01→20:00)
[2018-04-09] MEDS: PANTOPRAZOLE 40 MG TABLET PO SCH (12:01)
[2018-04-09] MEDS: HYDROcodone/APAP 5-325MG 1 EACH TAB PO PRN ×2 (12:02→20:00)
--- NOTE | 2018-04-09 13:53 | P.PN ---
Subjective Progress Note Date: 04/09/18 89 [address] old patient of Dr. Marie with past medical history of asthma and COPD GERD hyperlipidemia hypertension and BPH presents in with fever, chills. Patient was seen a day prior to admission with episode of near syncope and confusion after painful manipulation of his left hip. Patient appeared unwell on examination. Patient was sent home as labs were on nonsignificant. Brain CT was negative. Patient had a CT abdomen and pelvis was suggested some thickening in the colon in the sigmoid region but did not have any positive findings or symptoms concerning for infection. WBC was 14 and was considered to be reactive. Urinalysis was negative. Patient did have a creatinine of 1.3. She was discharged. Blood cultures done came to be staph aureus. Patient continues to have fever and and came in yesterday with shortness of breath and chills associated with weakness. Patient had a fever 102.9, pulse rate 106, blood pressure 139/63. WBC 14.8, hemoglobin 11.7, creatinine improved to 1.10 from 1.3 patient was admitted for bacteremia and sepsis with unknown source. Shins. Patient had a left hip pain CT of the hip was done with no acute findings suggestive of any abscess. Vancomycin and Zosyn was.initiated. 04/03: MRI of the lumbar spine is scheduled for this afternoon. Vomiting has improved. He was able to 8 a regular bland breakfast this morning without emesis. He has been afebrile. Blood pressure is on the higher side. IV fluids will be discontinued. Patient is complaining of a headache which he states was improved after Dilaudid yesterday and Tylenol but is coming back very strong today. Fioricet will be added. He denies any focal weaknesses. He does complain of some generalized weakness. Patient has one blood culture from April 01 that is presumptive staph aureus and a repeat on April 02 is also positive. Patient has been seen by Dr. Llanos. A repeat blood culture was obtained this morning. Patient is currently on nafcillin. 04/04: Blood culture from April 01 is MSSA pansensitive. He remains on nafcillin. Temperature max is been 100. MRI lumbar spine shows a nonspecific enhancing tissue anterior to spinal canal L5 level could reflect scar tissue or soft tissue infection. Now well formed fluid collection or abscess identified. No adjacent discitis or acute osteomyelitis. Stable intradural extramedullary round enhancing lesion with local mass effect could reflect meningioma. Other etiologies not excluded. Extensive postsurgical changes redemonstrated. We will add in consult with Dr. Edmondson for further evaluation of the MRI. Echocardiogram has been done with no vegetation found. Patient will be transferred to the [facility] floor. Patient does state that he had onset of diarrhea last evening and stool studies will be ordered. 04/05: Patient continued to be lethargic and weak but still able to ambulate to the bathroom on his own tolerating diet without difficulty denying chest pain, shortness breath, nausea, vomiting, dumping, dizziness, lightheadedness or blurry vision. Patient reported regular bowel movement and regular appetite but his energy level has gone down since he was diagnosed with infection. Patient reported only 25% improvement since admission. at the bedside 04/06: Patient continued to be lethargic spiked 100.5 temperature overnight to see if Tylenol and has been afebrile since that time. Patient updated with second set of cultures being positive and patient became frustrated. Patient is denying chest pain, shortness breath, nausea, vomiting, abdominal pain, dizziness, lightheadedness or blurry vision 8:13: Patient is scheduled for MICHAEL today. Case discussed with Dr. Fulton with plan for continued IV antibiotics and recheck MRI as an outpatient. Patient is agreeable to this. We do have repeat blood culture with no growth at 24 hours and another culture drawn today. Patient's nausea and vomiting and diarrhea have resolved. 04/08: MICHAEL did not show any vegetation. Dr. Llanos would like to wait for 72 hours with a negative blood culture before PICC line is placed. Patient is currently at 48 hours with no gross. He denies any new complaints. He is ambulating in the hallway and doing well. Anticipate discharge tomorrow. PICC line is ordered for tomorrow. 04/09: Dr. Llanos has confirmed the mass with Kefzol 2 g every 8 hours. Plan is for patient to stay until midnight and discharged home for single morning after his a.m. dose. No new complaints. Objective - Vital Signs Vital signs: Vital Signs Temp 98.6 F 04/09/18 06:36 Pulse 82 04/09/18 11:23 Resp 16 04/09/18 06:36 BP 166/88 04/09/18 11:23 Pulse Ox 96 04/09/18 11:23 Intake & Output 04/08/18 04/09/18 04/09/18 18:59 06:59 18:59 Intake Total 650 200 Balance 650 200 Weight 90.7 kg Intake: Intake, IV Titration 50 Amount Nafcillin 2 gm In 50 Dextrose 5% in Water 50 ml @ 50 mls/hr IVPB Q4HR [facility] Rx#:[id number] Oral 600 200 Other: Voiding Method Toilet # Voids 1 3 - Exam - Constitutional General appearance: cooperative, no acute distress, obese - EENT Eyes: anicteric sclerae, PERRLA, normal appearance ENT: hearing grossly normal - Neck Neck: no lymphadenopathy, normal ROM, no other, no rigidity, no stridor, no thyromegaly - Respiratory Respiratory: bilateral: CTA, negative: diminished, dullness, rales, rhonchi - Cardiovascular Rhythm: regular Heart sounds: normal: S1, S2 Abnormal Heart Sounds: no systolic murmur, no diastolic murmur, no rub, no S3 Gallop, no S4 Gallop, no click, no other - Gastrointestinal General gastrointestinal: normal bowel sounds, soft - Integumentary Integumentary: no rash - Neurologic Neurologic: CNII-XII intact, mild tenderness in the lumbar region, reflexes are normal no motor or sensory deficit - Musculoskeletal Musculoskeletal: gait normal, strength equal bilaterally - Psychiatric Psychiatric: A&O x's 3, appropriate affect - Labs CBC & Chem 7: 04/08/18 07:34 04/08/18 07:34 Labs: Abnormal Lab Results - Last 24 Hours (Table) 04/09/18 04/09/18 Range/Units 07:39 07:39 ESR 95 H (0-15) mm/hr C-Reactive Protein 87.8 H (<10.0) mg/L Microbiology - Last 24 Hours (Table) 04/07/18 09:04 Blood Culture - Preliminary Blood No Growth after 48 hours 04/06/18 06:58 Blood Culture - Preliminary Blood No Growth after 72 hours 04/04/18 16:00 Stool Culture - Final Stool Assessment and Plan Plan: #1 sepsis with MSSA bacteremia, unclear source. Abnormal findings on MRI to be reviewed by Dr. Edmondson. Repeat blood culture ordered today. Continue Kefzol. Consult with Dr. Llanos is appreciated. MRI of the lumbar spine as above. Tylenol for fever. Pain control with [place] 5. MICHAEL shows no vegetation. PICC line ordered for tomorrow. #2 mild intermittent asthma/COPD. Continue DuoNeb as needed. Continue Symbicort 2 puffs twice a day #3 GERD. Protonix 40 mg by mouth daily #4 low back pain status full steroid injections. Pain worse than previous. MRI ordered to rule out site of infection #5 DVT prophylaxis with heparin every 12 #6 disposition patient need 1-2 inpatient nights for management of sepsis #7 hypertension continue lisinopril and verapamil #8 hyperlipidemia continue atorvastatin 20 mg by mouth daily #9 BPH continue 4 mg daily of Cardura 10. Headache secondary to sepsis, resolved. Fioricet started. 11. Diarrhea, resolved. Stool studies ordered. CODE STATUS full code Discharge plan: Return home with IV antibiotics. Impression and plan of care have been directed as dictated by the signing physician. Suzanne Ybarra nurse practitioner acting as scribe for signing physician.
[2018-04-09] MEDS: ceFAZolin IN SWFI 2 GM/20 ML SYRINGE IVP SCH ×2 (16:47→23:16)
--- NOTE | 2018-04-09 17:44 | PN ---
PROGRESS NOTE DATE OF SERVICE: 04/09/2018. REASON FOR FOLLOWUP: MSSA bacteremia secondary to the lumbosacral spine infection. INTERVAL HISTORY: The patient is currently afebrile. He is breathing comfortably. He was waiting for a PICC line placement for outpatient IV antibiotic. The patient denies having any chest pain or shortness of breath or cough. No abdominal pain. No diarrhea. EXAMINATION: Blood pressure 166/88 with a pulse of 82, temperature 98.6. He is 96% on room air. General description is an elderly male up in the bed in no distress. Respiratory system: Unlabored breathing, clear to auscultation anteriorly. Heart S1, S2. Regular rate and rhythm. Abdomen soft, no tenderness. LABS: His sedimentation rate is 95 with a CRP of 87.8. Blood culture repeat 04/06 and 04/07, negative. DIAGNOSTIC IMPRESSION AND PLAN: Patient with MSSA bacteremia from 04/01 until 04/04 with a blood culture negative so far. Source is likely lumbosacral spine infection with no evidence of any drainable abscess. MICHAEL was negative. Antibiotic will be switched over to cefazolin 2 g q.8h. The patient to continue for at least 6 weeks with weekly monitoring of CBC and BMP and sed rate. Plan of care discussed with the admitting physician. Once the antibiotic arranged, she should be able to go home from ID standpoint. MMODL / IJN: [id number] /
[2018-04-09] MEDS: ATORVASTATIN 20 MG TAB PO SCH (20:00)
[2018-04-09 22:27] VITALS: PULSE 79
[2018-04-09] MEDS: MELATONIN 3 MG TABLET PO PRN (23:16)
[2018-04-10] MEDS: HYDROcodone/APAP 5-325MG 1 EACH TAB PO PRN (04:31)
[2018-04-10] MEDS: BUTALB/APAP/CAFF 50-325-40MG TAB PO PRN (04:31)
[2018-04-10 06:59] VITALS: BP 162/87; RESP 16; TEMP 99.2
[2018-04-10] MEDS: ceFAZolin IN SWFI 2 GM/20 ML SYRINGE IVP SCH (07:26)
[2018-04-10] MEDS: LISINOPRIL 20 MG TAB PO SCH (07:27)
[2018-04-10] MEDS: DOXAZOSIN 4 MG TAB PO SCH (07:27)
[2018-04-10] MEDS: VERAPAMIL SR 180 MG TABLET.ER PO SCH (07:27)
[2018-04-10] MEDS: PYRIDOSTIGMINE 60 MG TAB PO SCH (07:27)
[2018-04-10] MEDS: ASPIRIN 81 MG PO SCH (07:27)
[2018-04-10] MEDS: SERTRALINE 50 MG TAB PO SCH (07:27)
[2018-04-10] MEDS: PANTOPRAZOLE 40 MG TABLET PO SCH (07:27)
[2018-04-10] MEDS: SYMBICORT 160-4.5 MCG INHALER INHALATION SCH (07:31)
[2018-04-10] MEDS ORDERED: LIDOCAINE 2% INJ 20 MG/ML SQ ONE (08:41)
--- NOTE | 2018-04-10 09:37 | IR ---
PICC LINE PLACEMENT: HISTORY: Infection requiring long-term antibiotic therapy PROCEDURE: Ultrasound and fluoroscopic guidance of PICC line placement. COMPLICATIONS: None ANESTHESIA: 1. 1% Lidocaine locally. FINDINGS/TECHNIQUE: The procedure was explained to the patient. The risks, complications, benefits and alternatives were discussed and any questions were answered. Informed consent was obtained. The patient was placed supine on the fluoroscopic table and prepped and draped in the usual sterile fas ion. Utilizing a 21 gauge needle and sonographic and fluoroscopic guidance, access in the vein was achieved and there is placement of a 0.018 guidewire. The vein is patent. A 4-F sheath was placed o john the guidewire. The guidewire and dilator were removed and a 4-F. PICC line was placed through th e sheath with the tip at the level of the SVC. The sheath was removed, the catheter was flushed and sutured into position. The patient was stable throughout the procedure and remained stable upon disc harge from the Department of Radiology. The vein puncture was patent under ultrasound. A zuniga scale image was obtained to document patency of the vein punctured. All elements of the maximal barrier technique were utilized. FLUOROSCOPY TIME: 0.5 minutes of fluoroscopy and one image submitted. IMPRESSION: Successful PICC line placement under ultrasound and fluoroscopic guidance.
--- NOTE | 2018-04-10 15:16 | P.DS ---
Providers Date of admission: 04/01/18 17:51 Expected date of discharge: 04/10/18 Attending physician: Sol Herndon MD Consults: 04/02/18 13:58 Consult Physician Routine Consulting Provider: Gissell Llanos Consult Reason/Comments: bacteremia Do you want consulting provider notified?: Yes 04/04/18 11:10 Consult Physician Routine Consulting Provider: Dawna Edmondson Consult Reason/Comments: abn MRI L5, bacteremic Do you want consulting provider notified?: Yes 04/06/18 10:49 Consult Physician Routine Consulting Provider: Kb Gambino Consult Reason/Comments: MICHAEL/Bacteremia Do you want consulting provider notified?: Yes Primary care physician: [facility] Course: 89 years old patient of Dr. Marie with past medical history of asthma and COPD GERD hyperlipidemia hypertension and BPH presents in with fever, chills. Patient was seen a day prior to admission with episode of near syncope and confusion after painful manipulation of his left hip. Patient appeared unwell on examination. Patient was sent home as labs were on nonsignificant. Brain CT was negative. Patient had a CT abdomen and pelvis was suggested some thickening in the colon in the sigmoid region but did not have any positive findings or symptoms concerning for infection. WBC was 14 and was considered to be reactive. Urinalysis was negative. Patient did have a creatinine of 1.3. She was discharged. Blood cultures done came to be staph aureus. Patient continues to have fever and and came in yesterday with shortness of breath and chills associated with weakness. Patient had a fever 102.9, pulse rate 106, blood pressure 139/63. WBC 14.8, hemoglobin 11.7, creatinine improved to 1.10 from 1.3 patient was admitted for bacteremia and sepsis with unknown source. Shins. Patient had a left hip pain CT of the hip was done with no acute findings suggestive of any abscess. Vancomycin and Zosyn was.initiated. 04/03: MRI of the lumbar spine is scheduled for this afternoon. Vomiting has improved. He was able to 8 a regular bland breakfast this morning without emesis. He has been afebrile. Blood pressure is on the higher side. IV fluids will be discontinued. Patient is complaining of a headache which he states was improved after Dilaudid yesterday and Tylenol but is coming back very strong today. Fioricet will be added. He denies any focal weaknesses. He does complain of some generalized weakness. Patient has one blood culture from April 01 that is presumptive staph aureus and a repeat on April 02 is also positive. Patient has been seen by Dr. Llanos. A repeat blood culture was obtained this morning. Patient is currently on nafcillin. 04/04: Blood culture from April 01 is MSSA pansensitive. He remains on nafcillin. Temperature max is been 100. MRI lumbar spine shows a nonspecific enhancing tissue anterior to spinal canal L5 level could reflect scar tissue or soft tissue infection. Now well formed fluid collection or abscess identified. No adjacent discitis or acute osteomyelitis. Stable intradural extramedullary round enhancing lesion with local mass effect could reflect meningioma. Other etiologies not excluded. Extensive postsurgical changes redemonstrated. We will add in consult with Dr. Edmondson for further evaluation of the MRI. Echocardiogram has been done with no vegetation found. Patient will be transferred to the [facility] floor. Patient does state that he had onset of diarrhea last evening and stool studies will be ordered. 04/05: Patient continued to be lethargic and weak but still able to ambulate to the bathroom on his own tolerating diet without difficulty denying chest pain, shortness breath, nausea, vomiting, dumping, dizziness, lightheadedness or blurry vision. Patient reported regular bowel movement and regular appetite but his energy level has gone down since he was diagnosed with infection. Patient reported only 25% improvement since admission. at the bedside 04/06: Patient continued to be lethargic spiked 100.5 temperature overnight to see if Tylenol and has been afebrile since that time. Patient updated with second set of cultures being positive and patient became frustrated. Patient is denying chest pain, shortness breath, nausea, vomiting, abdominal pain, dizziness, lightheadedness or blurry vision 8:13: Patient is scheduled for MICHAEL today. Case discussed with Dr. Fulton with plan for continued IV antibiotics and recheck MRI as an outpatient. Patient is agreeable to this. We do have repeat blood culture with no growth at 24 hours and another culture drawn today. Patient's nausea and vomiting and diarrhea have resolved. 04/08: MICHAEL did not show any vegetation. Dr. Llanos would like to wait for 72 hours with a negative blood culture before PICC line is placed. Patient is currently at 48 hours with no gross. He denies any new complaints. He is ambulating in the hallway and doing well. Anticipate discharge tomorrow. PICC line is ordered for tomorrow. 04/09: Dr. Llanos has confirmed the mass with Kefzol 2 g every 8 hours. Plan is for patient to stay until midnight and discharged home for single morning after his a.m. dose. No new complaints. 04/10: Patient has received his morning dose of antibiotics will be to discharge home to follow-up with home IV antibiotics. Discharge diagnoses: #1 sepsis with MSSA bacteremia, unclear source. Abnormal findings on MRI to be reviewed by Dr. Edmondson. #2 mild intermittent asthma/COPD. #3 GERD. #4 low back pain status full steroid injections. #5 hypertension 6. hyperlipidemia 7. BPH 8. Headache secondary to sepsis, resolved. 9. Diarrhea, resolved. Discharge plan: Home with [facility] care and MID IV antibiotics. Impression and plan of care have been directed as dictated by the signing physician. Suzanne Ybarra nurse practitioner acting as scribe for signing physician. Patient Condition at Discharge: Good Plan - Discharge Summary Discharge Rx Participant: No New Discharge Prescriptions: New Lisinopril [Zestril] 20 mg PO DAILY #30 tab ceFAZolin [Kefzol] 2 gm IVP Q8HR #126 vial Continue Verapamil HCl [Verapamil ER] 180 mg PO DAILY Simvastatin 40 mg PO HS Sertraline [Zoloft] 50 mg PO DAILY Pyridostigmine [Mestinon] 60 mg PO BID Omeprazole 20 mg PO BID Doxazosin [Cardura] 4 mg PO DAILY Budesonide-Formot 160-4.5 Mcg [Symbicort 160-4.5 Mcg Inhaler] 2 puff INHALATION RT-BID Aspirin EC [Ecotrin Low Dose] 162 mg PO DAILY Ubidecarenone [Co Q-10] 100 mg PO DAILY HYDROcodone/APAP 5-325MG [[place] 5-325] 1 tab PO Q6HR PRN #12 tab PRN Reason: Pain Discontinued Lisinopril [Zestril] 10 mg PO DAILY Discharge Medication List Aspirin EC [Ecotrin Low Dose] 162 mg PO DAILY 03/31/18 [History] Budesonide-Formot 160-4.5 Mcg [Symbicort 160-4.5 Mcg Inhaler] 2 puff INHALATION RT-BID 03/31/18 [History] Doxazosin [Cardura] 4 mg PO DAILY 03/31/18 [History] HYDROcodone/APAP 5-325MG [[place] 5-325] 1 tab PO Q6HR PRN #12 tab 03/31/18 [Rx] Omeprazole 20 mg PO BID 03/31/18 [History] Pyridostigmine [Mestinon] 60 mg PO BID 03/31/18 [History] Sertraline [Zoloft] 50 mg PO DAILY 03/31/18 [History] Simvastatin 40 mg PO HS 03/31/18 [History] Ubidecarenone [Co Q-10] 100 mg PO DAILY 03/31/18 [History] Verapamil HCl [Verapamil ER] 180 mg PO DAILY 03/31/18 [History] Lisinopril [Zestril] 20 mg PO DAILY #30 tab 04/08/18 [Rx] ceFAZolin [Kefzol] 2 gm IVP Q8HR #126 vial 04/08/18 [Rx] Follow up Appointment(s)/Referral(s): Dawna Edmondson DO [Doctor of Osteopathic Medicine] - 04/22/18 10:50 am Torrey Garcia MD [Primary Care Provider] - 04/14/18 11:00 am (With Angella Negron NP.) [facility], [NON-STAFF] - Gissell Llanos MD [STAFF PHYSICIAN] - 04/24/18 9:00 am Ambulatory/Diagnostic Orders: Basic Metabolic Panel [LAB.AMB] Location: None Selected Complete Blood Count w/diff [LAB.AMB] Location: None Selected C Reactive Protein [LAB.AMB] Location: None Selected Erythrocyte Sedimentation Rate [LAB.AMB] Location: None Selected Patient Instructions/Handouts: Sepsis (GEN), Bacteremia (DC) Activity/Diet/Wound Care/Special Instructions: [facility] will be supplying the IV antibiotics in the home. For questions they can be contacted at Cardiac diet. Activity as tolerated. Discharge Disposition: HOME WITH HOME HEALTH SERVICES
== END 2018-04-10 09:10 | disposition home health service (06) | DRG 872 ==
LOC: EC 15:06 → 6SEL 17:51 → 4MS4W 04-04 22:57
PROVIDERS: ADMIT Internal Medicine; ATTEND Internal Medicine
PROC: B24BZZ4 Ultrasonography of Heart with Aorta, Transesophageal (ICD-10-PCS; 2018-04-07)
PROC: 02HV33Z Insertion of Infusion Device into Superior Vena Cava, Percutaneous Approach (ICD-10-PCS; principal; 2018-04-10 08:30)
DX: A41.01 Sepsis due to Methicillin susceptible Staphylococcus aureus (principal); E78.5 Hyperlipidemia, unspecified; F32.9 Major depressive disorder, single episode, unspecified; F41.9 Anxiety disorder, unspecified; G70.00 Myasthenia gravis without (acute) exacerbation; G89.29 Other chronic pain; I10 Essential (primary) hypertension; J44.9 Chronic obstructive pulmonary disease, unspecified; J45.20 Mild intermittent asthma, uncomplicated; K21.9 Gastro-esophageal reflux disease without esophagitis; M54.10 Radiculopathy, site unspecified; N40.0 Benign prostatic hyperplasia without lower urinary tract symptoms; M25.552 Pain in left hip; M54.5 Low back pain; R11.2 Nausea with vomiting, unspecified; R19.7 Diarrhea, unspecified; R51 Headache; E66.9 Obesity, unspecified; Z68.27 Body mass index [BMI] 27.0-27.9, adult; Z79.51 Long term (current) use of inhaled steroids; Z79.899 Other long term (current) drug therapy; Z79.82 Long term (current) use of aspirin; Z88.5 Allergy status to narcotic agent; Z87.891 Personal history of nicotine dependence; Z80.1 Family history of malignant neoplasm of trachea, bronchus and lung; Z82.49 Family history of ischemic heart disease and other diseases of the circulatory system; Z80.8 Family history of malignant neoplasm of other organs or systems
CPT/HCPCS: 36415; 36569; 71046; 72158; 76937; 77001; 80048; 80053; 81001; 82550; 82553; 83605; 83630; 83880; 84484; 85025; 85027; 85610; 85652; 85730; 86140; 87040; 87045; 87046; 87077; 87186; 87324; 87328; 87329; 93005; 93306; 93312; 93320; 93325; 94640; 94760; 96361; 96365; 96366; 96368; 96374; 96375; 99291

== ENCOUNTER → 2018-05-29 | Outpatient (CLI) | payer MEDICARE, BC ==
[2018-05-29 12:13] LABS: Basophils % (A) 0 %; Eosinophils # (A) 0.1 k/uL (0-0.7); Eosinophils % (A) 2 %; HCT 44.5 % (39.0-53.0); HGB 14.2 gm/dL (13.0-17.5); Lymphocytes # (A) 0.8 k/uL (1.0-4.8); Lymphocytes % (A) 12 %; MCH 30.1 pg (25.0-35.0); MCV 94.1 fL (80.0-100.0); Mean Platelet Volume 7.8; Monocytes # (A) 0.5 k/uL (0-1.0); Monocytes % (A) 7 %; Neutrophils # (A) 5.4 k/uL (1.3-7.7); Neutrophils % (A) 78 %; Platelet Count 212 k/uL (150-450); RBC 4.73 m/uL (4.30-5.90)
[2018-05-29 12:58] LABS: Calcium 10.1 mg/dL (8.4-10.2); Potassium 5.2 mmol/L (3.5-5.1)
[2018-05-29 14:13] LABS: Erythrocyte Sedimentation Rate 34 mm/hr (0-15)
[2018-05-29 17:47] LABS: C Reactive Protein 11.4 mg/L (<10.0)
== END ==
LOC: LABWHC1 11:30
PROVIDERS: ATTEND Internal Medicine Infectious Disease
DX: B95.61 Methicillin susceptible Staphylococcus aureus infection as the cause of diseases classified elsewhere (principal); G06.1 Intraspinal abscess and granuloma
CPT/HCPCS: 36415; 80048; 85025; 85652; 86140

== ENCOUNTER → 2018-06-04 | Outpatient (CLI) | payer MEDICARE, BC ==
[2018-06-04 16:14] LABS: Basophils % (A) 0 %; Eosinophils # (A) 0.1 k/uL (0-0.7); Eosinophils % (A) 1 %; HCT 43.6 % (39.0-53.0); HGB 13.8 gm/dL (13.0-17.5); Lymphocytes # (A) 1.2 k/uL (1.0-4.8); Lymphocytes % (A) 15 %; MCH 29.7 pg (25.0-35.0); MCHC 31.7 g/dL (31.0-37.0); MCV 93.7 fL (80.0-100.0); Mean Platelet Volume 8.3; Monocytes # (A) 0.4 k/uL (0-1.0); Monocytes % (A) 6 %; Neutrophils # (A) 5.7 k/uL (1.3-7.7); Neutrophils % (A) 77 %; Platelet Count 245 k/uL (150-450); RBC 4.65 m/uL (4.30-5.90); RDW 14.7 % (11.5-15.5); WBC 7.5 k/uL (3.8-10.6)
[2018-06-04 16:32] LABS: Calcium 10.1 mg/dL (8.4-10.2); Potassium 4.8 mmol/L (3.5-5.1)
[2018-06-04 17:34] LABS: Erythrocyte Sedimentation Rate 61 mm/hr (0-15)
== END ==
LOC: LABWHC1 15:12
PROVIDERS: ATTEND Internal Medicine Infectious Disease
DX: M46.26 Osteomyelitis of vertebra, lumbar region (principal)
CPT/HCPCS: 36415; 80048; 85025; 85652; 86140

== ENCOUNTER 2018-06-05 13:09 | Day surgery (SDC) | payer MEDICARE, BC ==
[2018-06-05 14:17] LABS: Basophils % (A) 0 %; Eosinophils # (A) 0.1 k/uL (0-0.7); Eosinophils % (A) 1 %; HGB 13.6 gm/dL (13.0-17.5); Hypochromasia Slight; Lymphocytes # (A) 0.9 k/uL (1.0-4.8); Lymphocytes % (A) 13 %; MCH 30.5 pg (25.0-35.0); MCHC 32.5 g/dL (31.0-37.0); MCV 93.9 fL (80.0-100.0); Mean Platelet Volume 7.9; Monocytes # (A) 0.4 k/uL (0-1.0); Monocytes % (A) 6 %; Neutrophils # (A) 5.4 k/uL (1.3-7.7); Neutrophils % (A) 79 %; Platelet Count 248 k/uL (150-450); RBC 4.47 m/uL (4.30-5.90); RDW 14.6 % (11.5-15.5); WBC 6.9 k/uL (3.8-10.6)
[2018-06-05] MEDS ORDERED: LIDOCAINE 1% INJ 10MG/ML (20 ML MDV) ONE (14:25)
[2018-06-05 14:27] LABS: Calcium 9.6 mg/dL (8.4-10.2); Potassium 4.8 mmol/L (3.5-5.1)
[2018-06-05 14:32] VITALS: BP 159/75; PULSE 75; RESP 20
[2018-06-05] MEDS ORDERED: LIDOCAINE 1% INJ 10MG/ML (20 ML MDV) SQ ONE (14:53)
--- NOTE | 2018-06-09 09:29 | IR ---
EXAMINATION TYPE: IR cvc insert >=5 years DATE OF EXAM: 06/05/2018 COMPARISON: NONE CLINICAL HISTORY: Infection Needs long-term intravenous access for antibiotics. PROCEDURE: After informed consent, the skin overlying the left basilic vein was localized with ultrasound and no carina to be compressible and patent. An ultrasound image was obtained and submitted on the patient's c godwin. The overlying skin was prepped and draped and Lidocaine was used for local anesthesia. A skin anton was made with a scalpel. Access was gained to the vein under ultrasound guidance with a 21 gau ge needle and a 0.018 inch wire was advanced. Access site was dilated with Peel-Away sheath and cath eter tailored to the appropriate length and advanced such that the distal tip is at the cavoatrial ju nction. Spot image was obtained verifying placement. Catheter was fixed to the skin and a sterile dressing was placed following hemostasis. Catheter was aspirated and flushed with saline. Patient w as discharged in stable condition without complication. Maximal barrier technique is utilized. Ultra sound image is documented on the chart. Ultrasound used with sterile technique. Fluoro time and fluoroscopic images submitted to document procedure: 0.1 minutes fluoroscopy time, 29 intraoperative C-arm images document the procedure IMPRESSION: STATUS POST ULTRASOUND AND FLUOROSCOPIC GUIDED PICC LINE PLACEMENT, READY FOR USE. THIS PROCEDURE WAS PERFORMED BY THE UNDERSIGNED.
== END 2018-06-05 15:15 | disposition home or self-care (01) ==
LOC: CATHCVL 13:09
PROVIDERS: ATTEND Radiology Diagnostic Radiology
DX: M46.46 Discitis, unspecified, lumbar region (principal); B95.61 Methicillin susceptible Staphylococcus aureus infection as the cause of diseases classified elsewhere; R78.81 Bacteremia; G89.29 Other chronic pain; J44.9 Chronic obstructive pulmonary disease, unspecified; K21.9 Gastro-esophageal reflux disease without esophagitis; I10 Essential (primary) hypertension; E78.5 Hyperlipidemia, unspecified; G70.00 Myasthenia gravis without (acute) exacerbation; N42.9 Disorder of prostate, unspecified; Z79.82 Long term (current) use of aspirin; Z79.51 Long term (current) use of inhaled steroids; Z79.899 Other long term (current) drug therapy; Z88.5 Allergy status to narcotic agent
CPT/HCPCS: 80048; 85025; 36569; J2001; 76937; 77001

== ENCOUNTER → 2018-07-21 | Outpatient (CLI) | payer MEDICARE, BC ==
[2018-07-21 13:48] LABS: Basophils % (A) 0 %; Eosinophils # (A) 0.1 k/uL (0-0.7); Eosinophils % (A) 1 %; HGB 15.2 gm/dL (13.0-17.5); Lymphocytes # (A) 1.2 k/uL (1.0-4.8); Lymphocytes % (A) 18 %; MCH 30.3 pg (25.0-35.0); MCHC 32.3 g/dL (31.0-37.0); MCV 93.6 fL (80.0-100.0); Mean Platelet Volume 8.3; Monocytes # (A) 0.5 k/uL (0-1.0); Monocytes % (A) 8 %; Neutrophils # (A) 4.6 k/uL (1.3-7.7); Neutrophils % (A) 71 %; Platelet Count 226 k/uL (150-450); RBC 5.02 m/uL (4.30-5.90); RDW 13.7 % (11.5-15.5); WBC 6.5 k/uL (3.8-10.6)
[2018-07-21 15:19] LABS: Erythrocyte Sedimentation Rate 24 mm/hr (0-15)
[2018-07-21 17:55] LABS: Albumin 4.3 g/dL (3.80-4.90); Albumin/Globulin Ratio 1.65 (1.20-2.10); Anion Gap 5.9 mmol/L (4.00-12.00); C Reactive Protein 0.7 mg/dL (0.0-0.8); Calcium 9.9 mg/dL (8.7-10.3); Carbon Dioxide 26.1 mmol/L (21.6-31.8); Globulin 2.6 g/dL (2.1-3.7); Potassium 4.6 mmol/L (3.5-5.5); Total Bilirubin 0.5 mg/dL (0.3-1.2); Total Protein 6.9 g/dL (6.2-8.2)
== END | disposition home or self-care (01) ==
LOC: LABWHC1 11:49
PROVIDERS: ATTEND Internal Medicine Infectious Disease
DX: M86.9 Osteomyelitis, unspecified (principal)
CPT/HCPCS: 36415; 80053; 85025; 85652; 86140

== ENCOUNTER → 2019-10-23 | Outpatient (CLI) | payer MEDICARE, BC ==
--- NOTE | 2019-10-23 08:08 | MR ---
EXAMINATION TYPE: MR brain wo/w con DATE OF EXAM: 10/23/2019 COMPARISON: MRI brain dated 01/04/2015. HISTORY: Double vision TECHNIQUE: Multiplanar, multisequence images of the brain and brainstem is performed without and with IV contras t, utilizing 9 mL intravenous Gadavist . FINDINGS: Diffusion weighted images demonstrate no evidence of a recent infarct or other diffusion ab normality. There is no worrisome extra-axial fluid collection. Mild ventricular and sulcal prominenc e redemonstrated. Scattered foci of T2 hyperintensity seen throughout the white matter again seen, ap proximately 30-40 scattered lesions with largest lesions in the occipital lobe axial image 24 redemon strated but stable. Midline structures demonstrate normal morphology. The craniocervical junction appears within normal limits. Post contrast images demonstrate no abnormal enhancement. The dural venous sinuses appear pa tent. The visualized sinuses are clear and the globes are intact. IMPRESSION: Redemonstration of mild diffuse cerebral atrophy and moderate chronic small vessel ischem ic change. No significant change or progression from prior MRI.
== END | disposition home or self-care (01) ==
LOC: RADMRIMAIN 06:00
PROVIDERS: ATTEND Internal Medicine Geriatric Medicine
DX: G31.9 Degenerative disease of nervous system, unspecified (principal); I67.82 Cerebral ischemia
CPT/HCPCS: 70553; A9585

== ENCOUNTER → 2023-11-01 | Outpatient (CLI) | payer MEDICARE, BC ==
[2023-11-01 18:19] LABS: Basophils # (A) 0.02 X 10*3/uL (0.00-0.10); Basophils % (A) 0.4 %; Eosinophils # (A) 0.07 X 10*3/uL (0.04-0.35); Eosinophils % (A) 1.3 %; HCT 45.1 % (39.6-50.0); HGB 14.8 g/dL (13.0-17.0); Lymphocytes # (A) 1.09 X 10*3/uL (0.90-5.00); Lymphocytes % (A) 20.1 %; MCH 31.7 pg (27.0-32.0); MCHC 32.8 g/dL (32.0-37.0); MCV 96.6 FL (80.0-97.0); Mean Platelet Volume 12.3 FL (9.5-12.2); Monocytes # (A) 0.54 X 10*3/uL (0.20-1.00); NRBC Per 100 WBC 0 X 10*3/uL (0.00-0.01); Neutrophils # (A) 3.69 X 10*3/uL (1.80-7.70); Platelet Count 187 X 10*3/uL (140-440); RBC 4.67 X 10*6/uL (4.40-5.60); RDW 14.2 % (11.5-14.5); WBC 5.42 X 10*3/uL (4.50-10.00)
== END | disposition home or self-care (01) ==
LOC: LABPAT 11:11
PROVIDERS: ATTEND Surgery
DX: Z01.812 Encounter for preprocedural laboratory examination (principal); K40.90 Unilateral inguinal hernia, without obstruction or gangrene, not specified as recurrent
CPT/HCPCS: 36415; 85025; 86850; 86900; 86901

== ENCOUNTER 2023-11-12 08:43 | Day surgery (SDC) | payer MEDICARE, BC ==
[2023-11-11 08:51] VITALS: BMI 25.7
[~2023-11-12 08:43] MED LIST: LACTATED RINGERS 1,000 ML IV SCH; fentaNYL (PF) 50 MCG/ML 2 ML AMP IV PRN
[2023-11-12] MEDS: LACTATED RINGERS 1,000 ML IV ONE ×2 (09:57→11:32)
[2023-11-12] MEDS: DEXAMETHASONE SOD PHOSPHATE 4 MG/ML 1 ML VIAL IV ONE (10:12)
[2023-11-12] MEDS: ACETAMINOPHEN TAB 500 MG TAB PO PRN (10:12)
[2023-11-12] MEDS: ONDANSETRON 4 MG/2 ML VIAL IVP ONE (10:12)
[2023-11-12] MEDS: MIDAZOLAM 2 MG/2 ML VIAL IV PRN (10:15)
[2023-11-12] MEDS ORDERED: ePHEDrine 50 MG/ML 1 ML VIAL ONE (10:30)
[2023-11-12] MEDS ORDERED: SUCCINYLCHOLINE CHLORIDE 200 MG/10 ML VIAL IV ONE (10:30)
[2023-11-12] MEDS ORDERED: ROCURONIUM 10 MG/ML (5 ML VIAL) IV ONE (10:30)
[2023-11-12] MEDS ORDERED: SUGAMMADEX SODIUM 200 MG/2 ML SDV IV ONE (10:30)
[2023-11-12] MEDS ORDERED: fentaNYL (PF) 50 MCG/ML 2 ML AMP ONE (10:30)
[2023-11-12] MEDS ORDERED: KETAMINE HCL IN 0.9 % NACL 50 MG/5 ML SYRINGE ONE (10:30)
[2023-11-12] MEDS ORDERED: SODIUM CHLORIDE 0.9% (PF) 10 ML VIAL ONE (10:30)
[2023-11-12] MEDS ORDERED: GLYCOPYRROLATE 0.2 MG/ML 2 ML VIAL ONE (10:30)
[2023-11-12] MEDS ORDERED: LIDOCAINE 1% INJ 10MG/ML (20 ML MDV) ONE (10:30)
[2023-11-12] MEDS ORDERED: ROPIVACAINE 5 MG/ML 30 ML VIAL ONE (10:30)
[2023-11-12] MEDS ORDERED: PROPOFOL 10 MG/ML 20 ML VIAL IV ONE (10:30)
[2023-11-12] MEDS ORDERED: DEXAMETHASONE SOD PHOSPHATE 10 MG/ML 1 ML VIAL ONE (10:30)
[2023-11-12] MEDS: HEPARIN SODIUM,PORCINE 5,000 UNIT/ML 1 ML VIAL SQ PRN (10:34)
[2023-11-12] MEDS: LIDOCAINE 1%-EPI 1:100,000 50 ML VIAL SQ ONE (11:07)
--- NOTE | 2023-11-12 11:18 | P.OP ---
Date of Procedure: 11/12/23 Preoperative Diagnosis: Left inguinal hernia Postoperative Diagnosis: Left inguinal hernia Procedure(s) Performed: Laparoscopic robotic superior of left inguinal hernia Transversus abdominis plane block Anesthesia: HAO Surgeon: Angelito Aiken Estimated Blood Loss (ml): 5 Pathology: none sent Condition: stable Disposition: PACU Description of Procedure: The patient's placed on the operating table in the supine position. The patient received general anesthesia. The patient's abdomen was prepped and draped in usual sterile fashion. The skin was anesthetized 1% local Xylocaine at the incision sites. Using an 11 blade a skin incision was made at the umbilicus. The fascia was grasped with a [place] and then the peritoneal cavity was entered with the Veress needle. Position of the Veress needle was confirmed with a positive drop test. After adequate insufflation a 5 mm trocar was placed into the peritoneal cavity. The Laparoscope was placed the peritoneal cavity. And a robotic 8 mm trocar was placed in the right lateral position and then another 8 mm robotic trochars placed in the left lateral position. The original 5 mm trocar was exchanged for a 12 mm trocar. A four-quadrant transversely) block was performed 1% local Xylocaine. The patient was placed in reverse Trendelenburg and then the patient was docked to the robot. Next the peritoneum over top of the hernia was incised and then using blunt and sharp dissection and electrocautery the hernia sac was dissected free from the floor of the inguinal canal. The hernia sac was completely reduced into the peritoneal cavity. And then using the Pro tin dipper mesh the hernia was repaired. The peritoneum was then sutured with 20V lock suture. The patient was then undocked the robot. The needle was withdrawn from the peritoneal cavity. The umbilical trocar site was closed with 0 Ethibond suture. The skin was closed interrupted 3-0 Monocryl suture. Dermabond dressing was applied. Patient was sent to recovery in stable condition.
--- NOTE | 2023-11-12 11:28 | P.ANPRN ---
Procedure Note - Anesthesia - Nerve Block Performed Bilateral Erector Spinae Single Time Out Performed: Yes Date of Procedure: 11/12/23 Procedure Start Time: 10:14 Procedure Stop Time: :28 Location of Patient: PreOp Indication: Acute Post-Operative Pain, Requested by Surgeon Sedation Type: Sedate with meaningful contact maintained Preparation: Sterile Prep, Sterile Dressing Position: Prone Catheter: None Needle Types: Facet Needle Gauge: 20 Ultrasound used to visualize needle placement: Yes Ultrasound used to observe medication spread: Yes Injectate: Other (see comment) (Ropivacaine 0.25% 30 ml + decadron 5 mg per side) Blood Aspirated: No Pain Paresthesia on Injection Noted: No Resistance on Injection: Normal Image Stored and Saved: Yes Events: Uneventful and Well Tolerated
[2023-11-12 11:56] VITALS: TEMP 97
[2023-11-12 12:31] VITALS: BP 157/74; PULSE 87
[2023-11-12 12:32] VITALS: RESP 20
== END 2023-11-12 13:35 | disposition home or self-care (01) ==
LOC: OR 08:43
PROVIDERS: ATTEND Surgery
DX: K40.90 Unilateral inguinal hernia, without obstruction or gangrene, not specified as recurrent (principal); I10 Essential (primary) hypertension; E78.5 Hyperlipidemia, unspecified; Z79.899 Other long term (current) drug therapy; Z79.82 Long term (current) use of aspirin; Z98.890 Other specified postprocedural states; Z88.5 Allergy status to narcotic agent
CPT/HCPCS: 49650; S2900; 64999